=== PATIENT | female | born 1965 | race Caucasian/White ===

== ENCOUNTER 2016-07-29 16:59 | Observation (INO) ==
--- NOTE | 2016-07-29 19:11 | Emergency Department Note ---
Disposition Clinical Impression: Hyperglycemia, Renal failure Disposition: Admitted As Inpatient Condition: Good Time of Disposition: 20:17 General Adult HPI - General Chief complaint: ED Recheck/Abnormal Lab/Rx Stated complaint: kidney function per DR Anna Time Seen by Provider: 07/29/16 18:33 Source: patient Mode of arrival: ambulatory Limitations: no limitations Nursing Notes Reviewed: Yes Vital Signs Reviewed: Yes - History of Present Illness HPI Narrative: 51-year-old female presents from Dr. Anna's office for out of control diabetes with a blood sugar of 450 and an A1c of 10 along with worsening GFR from 46 to 35. 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 She states that she has mild malaise, and increased thirst and urinary frequency. She denies any headache, fever, neck pain or chest pain or shortness of breath, abdominal pain, nausea, vomiting, diarrhea, rashes or edema. She denies noncompliance with her metformin. She states that she does not check her blood sugar regularly. Pain Scale: 7 - Related Data Home Medications Medication Instructions Recorded Confirmed GlipiZIDE [Glucotrol] 5 mg PO BID 02/25/15 07/29/16 Linagliptin [Tradjenta] 5 mg PO BID 02/25/15 07/29/16 Gabapentin [Neurontin] 300 mg PO HS 07/29/16 07/29/16 Omeprazole [PriLOSEC] 40 mg PO BID 07/29/16 07/29/16 OxyCODONE Immed Rel [Roxicodone 5 5 mg PO TID PRN 07/29/16 07/29/16 MG] Allergies Allergy/AdvReac Type Severity Reaction Status Date / Time Hydromorphone [From Dilaudid] Allergy Hives Verified 01/01/16 10:47 Penicillins Allergy Seizure Verified 01/01/16 10:47 sulfamethoxazole Allergy Hives Verified 02/25/15 14:50 [From Bactrim] trimethoprim [From Bactrim] Allergy Hives Verified 02/25/15 14:50 All systems ED: reviewed and negative except as stated. Past Medical History - Past Medical History Attestation: Yes The following information was validated with the patient. Source: patient Medical history: Reports: cancer, diabetes, GERD, renal disease, seizures Surgical history: Reports: cholecystectomy, hysterectomy, other Psychiatric history: Reports: no psych history - Social History Smoking Status: Never smoker Smokeless Tobacco Status: No Alcohol use: Reports: unknown Drug use: Reports: none Physical Exam - Head Head exam: atraumatic, normocephalic, normal inspection - Eye Eye exam: Present: normal appearance, PERRL, EOMI - ENT ENT exam: normal exam, normal oropharynx, mucous membranes moist - Neck Neck exam: Present: normal inspection, full ROM, trachea midline - Chest Chest inspection: Present: normal inspection, symmetric chest wall rise - Respiratory Respiratory exam: Clear to auscultation bilaterally without wheezes rales or rhonchi Cardiovascular Cardiovascular exam: Present: regular rate, normal rhythm, normal heart sounds - Abdominal Exam Abdominal exam: Present: soft, Non-Tender. Absent: tenderness, distention, guarding, rebound, rigidity - Extremities Exam Extremities exam: Present: normal inspection, full ROM - Expanded Lower Extremity Exam Hip/Pelvis exam: Present: normal inspection, full ROM - Back Exam Back exam: Present: normal inspection, full ROM. Absent: tenderness, CVA tenderness (R), CVA tenderness (L) - Neurological Exam Neurological exam: Present: alert, oriented X3, CN II-XII intact - Psychiatric Psychiatric exam: Present: normal affect, normal mood - Skin Skin exam: Present: warm, dry, intact, normal color - General Limitations: no limitations General appearance: alert, in no apparent distress Course - Reevaluation(s) Reevaluation #1: Labs show ketosis without acidosis. Glucose 311. GFR 38. Given solitary kidney Dr. Shoshana Anna would like patient admitted. Accepted by Dr. Terrazas. Time: 20:15 Vital Signs Temperature 98.4 F 07/29/16 17:03 Pulse Rate 81 07/29/16 17:03 Respiratory Rate 18 07/29/16 17:03 Blood Pressure 180/92 07/29/16 17:03 O2 Sat by Pulse Oximetry 99 07/29/16 17:03 Temperature 98.4 F 07/29/16 17:03 Pulse Rate 81 07/29/16 19:19 Respiratory Rate 16 07/29/16 19:19 Blood Pressure 149/107 07/29/16 19:19 O2 Sat by Pulse Oximetry 95 07/29/16 19:19 Oxygen Delivery Oxygen Delivery Room Air Medical Decision Making - Lab Data Result diagrams: 07/29/16 19:06 07/29/16 19:06 Lab Results 07/29/16 07/29/16 07/29/16 Range/Units 19:06 19:06 19:06 WBC 7.0 (4.3-11.1) K/mcL RBC 5.74 H (3.82-4.97) M/mcL Hgb 15.5 H (11.5-15.4) g/dL Hct 45.5 H (35.3-44.9) % MCV 79.3 L (83.0-100.0) fL MCH 27.0 L (28.0-33.3) pg MCHC 34.1 (31.6-35.5) g/dL RDW 12.5 (11.5-14.5) % Plt Count 207 (140-400) K/mcL MPV 9.4 (9.4-12.4) fL Immature Gran % 0.4 (0-4) % Seg Neutrophils % 57.1 % Lymphocytes % 31.7 % Monocytes % 7.1 % Eosinophils % 3.3 % Basophils % 0.4 % Neutrophils # 4.0 (1.6-8.9) K/mcL Lymphocytes # 2.2 (0.6-4.6) K/mcL Monocytes # 0.5 (0.0-1.3) K/mcL Eosinophils # 0.2 (0.0-0.6) K/mcL Basophils # 0.0 (0.0-0.2) K/mcL VBG pH 7.44 H (7.32-7.42) pH Units VBG pCO2 36 L (41-51) mmHg VBG pO2 118 H (25-40) mmHg VBG HCO3 24.5 (21-27) mEq/L Sodium 136 (136-145) mEq/L Potassium 3.8 D (3.5-4.5) mEq/L Chloride 102 (98-109) mEq/L Carbon Dioxide 25 (19-29) mEq/L BUN 14 (7-20) mg/dL Creatinine 1.45 H (0.57-1.11) mg/dL Est GFR ( Amer) 46 L (> 60) Est GFR (Non-Af Amer) 38 L (> 60) BUN/Creatinine Ratio 10 (6-26) Glucose 311 H (70-99) mg/dL Calculated Osmolality 294 (280-300) Calcium 9.4 (8.6-10.8) mg/dL Phosphorus 3.2 (2.3-4.7) mg/dL Magnesium 1.8 (1.6-2.6) mg/dL Total Bilirubin 0.9 (0.2-1.2) mg/dL AST 44 H (5-34) Units/L ALT 94 H (0-55) Units/L Alkaline Phosphatase 138 H (38-126) Units/L Serum Total Protein 7.7 (6.0-8.3) g/dL Albumin 3.5 (3.5-5.0) g/dL Globulin 4.2 H (2.4-3.5) g/dL Albumin/Globulin Ratio 0.8 L (1.1-2.2) Beta-Hydroxybutyric Acd 0.45 H (0.02-0.27) mmol/L Urine Color (Yellow) Urine Clarity (Clear) Urine pH (5.0-8.0) pH Units Ur Specific [place] (1.010-1.025) Urine Protein (Neg-Trace) mg/dL Urine Glucose (UA) (Normal) mg/dL Urine Ketones (Negative) mg/dL Urine Blood (Negative) Urine Nitrite (Negative) Urine Bilirubin (Negative) Urine Urobilinogen (Normal) mg/dL Ur Leukocyte Esterase (Negative) Urine Microscopic RBC (0-3) per hpf Urine Microscopic WBC (0-3) per hpf Ur Squamous Epith Cells (None-Few) per lpf Urine Bacteria (None-Few) per hpf Hyaline Casts (None-Few) per lpf Ur Culture Indicated? (NO) 07/29/16 Range/Units 21:20 WBC (4.3-11.1) K/mcL RBC (3.82-4.97) M/mcL Hgb (11.5-15.4) g/dL Hct (35.3-44.9) % MCV (83.0-100.0) fL MCH (28.0-33.3) pg MCHC (31.6-35.5) g/dL RDW (11.5-14.5) % Plt Count (140-400) K/mcL MPV (9.4-12.4) fL Immature Gran % (0-4) % Seg Neutrophils % % Lymphocytes % % Monocytes % % Eosinophils % % Basophils % % Neutrophils # (1.6-8.9) K/mcL Lymphocytes # (0.6-4.6) K/mcL Monocytes # (0.0-1.3) K/mcL Eosinophils # (0.0-0.6) K/mcL Basophils # (0.0-0.2) K/mcL VBG pH (7.32-7.42) pH Units VBG pCO2 (41-51) mmHg VBG pO2 (25-40) mmHg VBG HCO3 (21-27) mEq/L Sodium (136-145) mEq/L Potassium (3.5-4.5) mEq/L Chloride (98-109) mEq/L Carbon Dioxide (19-29) mEq/L BUN (7-20) mg/dL Creatinine (0.57-1.11) mg/dL Est GFR ( Amer) (> 60) Est GFR (Non-Af Amer) (> 60) BUN/Creatinine Ratio (6-26) Glucose (70-99) mg/dL Calculated Osmolality (280-300) Calcium (8.6-10.8) mg/dL Phosphorus (2.3-4.7) mg/dL Magnesium (1.6-2.6) mg/dL Total Bilirubin (0.2-1.2) mg/dL AST (5-34) Units/L ALT (0-55) Units/L Alkaline Phosphatase (38-126) Units/L Serum Total Protein (6.0-8.3) g/dL Albumin (3.5-5.0) g/dL Globulin (2.4-3.5) g/dL Albumin/Globulin Ratio (1.1-2.2) Beta-Hydroxybutyric Acd (0.02-0.27) mmol/L Urine Color Yellow (Yellow) Urine Clarity Clear (Clear) Urine pH 6.0 (5.0-8.0) pH Units Ur Specific [place] > 1.030 H (1.010-1.025) Urine Protein Trace (Neg-Trace) mg/dL Urine Glucose (UA) >=1000 H (Normal) mg/dL Urine Ketones Negative (Negative) mg/dL Urine Blood Negative (Negative) Urine Nitrite Negative (Negative) Urine Bilirubin Small H (Negative) Urine Urobilinogen Normal (Normal) mg/dL Ur Leukocyte Esterase Negative (Negative) Urine Microscopic RBC 0-3 (0-3) per hpf Urine Microscopic WBC 3-5 H (0-3) per hpf Ur Squamous Epith Cells Many H (None-Few) per lpf Urine Bacteria Few (None-Few) per hpf Hyaline Casts None Seen (None-Few) per lpf Ur Culture Indicated? NO (NO) Attestation Statement - Attestation Attestation: I examined this patient and my medical decision-making was reviewed with the PLAN NURSE/PA/Advanced Practice Nurse/Resident Physician. I agree with the documented findings, disposition and treatment plan as described except to the extent set forth below. Patient to the emergency department complaining of abnormal labs. Patient has been drinking and urinating a lot. Blood sugar was up. Had outpatient labs that showed a drop in her GFR. States her media developer was concerned because she only has one kidney. Sent to ED for evaluation. Denies change in diet. Denies fever. Denies cough. Denies vomiting or diarrhea. States she has been eating and drinking normally. Exam shows her in no acute distress with stable vitals. Plan. Repeat labs. IV hydration. Renal ultrasound performed. Labs not improved. IV hydration was given. She is admitted to medicine.
[2016-07-29 19:18] LABS: VBG HCO3 24.5 mEq/L (21-27); VBG PH 7.44 pH Units (7.32-7.42)
[2016-07-29 19:22] LABS: Basophils % 0.4 %; Eosinophils # 0.2 K/mcL (0.0-0.6); Eosinophils % 3.3 %; Hematocrit 45.5 % (35.3-44.9); Hemoglobin 15.5 g/dL (11.5-15.4); Immature Granulocytes % 0.4 % (0-4); Lymphocytes # 2.2 K/mcL (0.6-4.6); Lymphocytes % 31.7 %; Mean Corpuscular HGB Conc 34.1 g/dL (31.6-35.5); Mean Corpuscular Volume 79.3 fL (83.0-100.0); Mean Platelet Volume 9.4 fL (9.4-12.4); Monocytes # 0.5 K/mcL (0.0-1.3); Monocytes % 7.1 %; Platelet Count 207 K/mcL (140-400); Red Blood Count 5.74 M/mcL (3.82-4.97); Red Cell Distribution Width 12.5 % (11.5-14.5); Segmented Neutrophils % 57.1 %
[2016-07-29 19:29] LABS: Beta-Hydroxybutyric Acid 0.45 mmol/L (0.02-0.27)
[2016-07-29 19:39] LABS: Albumin 3.5 g/dL (3.5-5.0); Albumin/Globulin Ratio 0.8 (1.1-2.2); Bilirubin,Total 0.9 mg/dL (0.2-1.2); Calcium 9.4 mg/dL (8.6-10.8); Globulin 4.2 g/dL (2.4-3.5); Magnesium 1.8 mg/dL (1.6-2.6); Phosphorous 3.2 mg/dL (2.3-4.7); Potassium 3.8 mEq/L (3.5-4.5); Total Protein 7.7 g/dL (6.0-8.3)
[2016-07-29] MEDS ORDERED: *HR* OxyCODONE/APAP 5/325 TABLET PO ONE (20:28)
[2016-07-29] MEDS: 0.9 % Sodium Chloride 1,000 ML IVC SCH ×2 (20:29→23:47)
[2016-07-29] MEDS ORDERED: Acetaminophen 325 MG TABLET PO PRN (20:59)
[2016-07-29] MEDS ORDERED: Naloxone 0.4 MG/ML INJ IVP PRN (20:59)
[2016-07-29] MEDS ORDERED: *HR* Dextrose 50 % in Water (Syg) 50 ML SYRINGE IVP PRN (21:02)
[2016-07-29] MEDS ORDERED: D5% in Water 1,000 ML IVC PRN (21:02)
[2016-07-29] MEDS ORDERED: Dextrose Gel 15 GM PO PRN ×2 (21:02)
[2016-07-29 21:28] LABS: Bilirubin,Urine Small (Negative); Blood,Urine Negative (Negative); Clarity,Urine Clear (Clear); Color,Urine Yellow (Yellow); Glucose,Urine (UA) >=1000 mg/dL (Normal); Ketones,Urine Negative (Negative); Leukocyte Esterase,Urine Negative (Negative); Nitrite,Urine Negative (Negative); Protein,Urine Trace mg/dL (Neg-Trace); Specific Gravity,Urine > 1.030 (1.010-1.025); Urobilinogen,Urine Normal (Normal)
[2016-07-29 21:30] LABS: Bacteria,Urine Few per hpf (None-Few); Hyaline Casts,Urine None Seen per lpf (None-Few); RBC,Urine 0-3 per hpf (0-3); Squamous Epithelial Cell,Urine Many per lpf (None-Few)
--- NOTE | 2016-07-29 21:37 | Internal Med History&Physical ---
<Beau Rodriguez - Last Filed: 07/29/16 23:06> Date of Encounter: 07/29/16 Time of Encounter: 21:32 Assessment and Plan (1) Hyperglycemia Current visit: Yes Status: Acute Patient's blood sugar was 311 on presentation, was 453 on BMP 2 days ago. She was symptomatic with this however she does not have ketones in her urine. She does not have an anion gap so she does not appear to be in DKA or HHS. We will treat with fluid hydration and initiate basal bolus insulin. Patient states she is concerned about starting insulin but she may require insulin therapy at discharge. (2) CKD (chronic kidney disease) stage 3, GFR 30-59 ml/min Current visit: Yes Status: Acute GFR is 38 on presentation, slightly decreased from her baseline of upper 40s to low 50s. Likely related to dehydration. Will fluid hydrate and monitor creatinine. Retroperitoneal ultrasound reveals no evidence of hydronephrosis or obstruction. (3) Solitary kidney Current visit: Yes Status: Acute Patient has a solitary right kidney, retroperitoneal ultrasound shows of 4.2 x 2.3 x 3.2 cm focal thickening of the right renal upper pole. I spoke with the radiologist regarding this and may recommend a CT with contrast for further characterization of this area. Given the patient's chronic kidney disease and solitary kidney I am hesitant to give the patient IV contrast without having the drafter patent on board therefore we will consult nephrology and allow them to manage the patient's renal function in preparation for possible CT scan. (4) Diabetes type 2, uncontrolled Current visit: Yes Status: Acute Patient is noncompliant with checking her blood sugars. Patient recently started safflower oil and attempt to better control her blood sugars however this could have adversely affected her blood sugars. We will institute insulin as discussed above. Qualifiers: Diabetes mellitus complication status: with kidney complications Diabetes mellitus complication detail: with chronic kidney disease Diabetes mellitus milieu therapist insulin use: without jail use Chronic kidney disease stage: stage 3 (moderate) Qualified Code(s): E11.22 - Type 2 diabetes mellitus with diabetic chronic kidney disease; E11.65 - Type 2 diabetes mellitus with hyperglycemia; N18.3 - Chronic kidney disease, stage 3 (moderate) (5) GERD (gastroesophageal reflux disease) Current visit: Yes Status: Acute Stable. Continue PPI. Qualifiers: Esophagitis presence: esophagitis presence not specified Qualified Code(s) : K21.9 - Gastro-esophageal reflux disease without esophagitis (6) DVT prophylaxis Current visit: Yes Status: Acute Heparin 5000u SQ BID Internal Medicine - H&P: HPI Chief complaint: Flank pain Admitted From: Home Plans for Post Hospital Care: Home History of present illness: Ms. Plunkett is a 51 year old female with history of solitary kidney, chronic kidney disease stage III, diabetes presents with right flank pain. Patient states that she was seen by her drafter patent, Dr. Anna, today and the patient had symptoms including right flank pain, headache, nausea, general feeling of unwell. Patient states that Dr. Anna stated that her kidney function was worsening her sugar was high so she requested that she come to the hospital to be admitted for treatment. Patient states the symptoms going on for about 3 days. She also reports polyuria and polydipsia and feels that her urine has been darker than normal. Patient states that she began using safflower oil approximately 3 days ago to help regulate her sugars and lose weight on suggestion of her sister. Patient states she has been trying to watch her diet recently but does not monitor her sugars. She denies fever, chills, chest pain , shortness of breath, dysuria, hematuria. Past Med Surg Social Fam HX - Past Medical History Medical history: cancer, diabetes, GERD, renal disease, seizures Psychiatric history: no psych history - Past Surgical History Surgical History: cholecystectomy, hysterectomy, other - Social History Smoking Status: Never smoker Smokeless Tobacco Status: No Alcohol use: unknown Drug use: none - Family History Mother Living Status: Hx Family Respiratory Disorders: Yes Hx Family Cancer: Yes (MELANOMA) Internal Medicine - H&P: Meds GlipiZIDE [Glucotrol] 5 mg PO BID 02/25/15 [History] Linagliptin [Tradjenta] 5 mg PO BID 02/25/15 [History] Gabapentin [Neurontin] 300 mg PO HS 07/29/16 [History] Omeprazole [PriLOSEC] 40 mg PO BID 07/29/16 [History] OxyCODONE Immed Rel [Roxicodone 5 MG] 5 mg PO TID PRN 07/29/16 [History] Allergies Hydromorphone [From Dilaudid] Allergy (Verified 01/01/16 10:47) Hives Penicillins Allergy (Verified 01/01/16 10:47) Seizure sulfamethoxazole [From Bactrim] Allergy (Verified 02/25/15 14:50) Hives trimethoprim [From Bactrim] Allergy (Verified 02/25/15 14:50) Hives All Systems PM: A 10-system review of systems was performed and is negative for pertinent findings except as documented above in the HPI. - Constitutional Constitutional: lethargy, malaise, no chills, no fever(s) - EENT Eyes: blurry vision Nose, mouth and throat: no sinus pain, no sinus pressure, no sore throat - Cardiovascular Cardiovascular ROS IM: no chest pain, no diaphoresis, no dyspnea - Respiratory Respiratory: no cough, no dyspnea, no chest congestion, no excessive phlegm production, no change in phlegm color - Gastrointestinal Gastrointestinal: nausea, no diarrhea, no hematemesis, no hematochezia, no vomiting - Genitourinary Genitourinary: flank pain, no dysuria, no hematuria, no urinary frequency, no urinary hesitancy, no urinary incontinence, no urinary urgency - Musculoskeletal Musculoskeletal ROS IM: numbness, tingling - Integumentary Integumentary IM: no erythema, no skin ulcer - Neurological Neurological ROS: headache(s), tingling, no confusion, no focal weakness, no frequent falls - Endocrine Endocrine IM: polydipsia, polyuria - Constitutional Vitals: Temp Pulse Resp BP Pulse Ox 98.4 F 81 16 149/107 95 07/29/16 17:03 07/29/16 19:19 07/29/16 19:19 07/29/16 19:19 07/29/16 19:19 General appearance: Present: A&O X 3, no acute distress - Head Head exam: Present: atraumatic, normal inspection, normocephalic - Eye Eye exam: Present: EOMI, PERRL - ENT ENT exam: Present: mucous membranes dry - Respiratory Respiratory exam: Present: CTAB. Absent: rales, rhonchi, wheezes - Cardiovascular Cardiovascular exam: Present: RRR. Absent: gallop, rubs, systolic murmur - GI/Abdominal GI/Abdominal exam: Present: normal bowel sounds, soft. Absent: distended, tenderness Additional comments: No CVA tenderness - Extremities Exam Extremities exam: Present: pedal edema (trace). Absent: tenderness, warm - Neurological Exam Neurological exam: Present: alert, CN II-XII intact, oriented X3, no focal deficits Internal Med - H&P Results - Labs CBC & Chem 7: 07/29/16 19:06 07/29/16 19:06 Labs: Short CBC 07/29/16 Range/Units 19:06 WBC 7.0 (4.3-11.1) K/mcL Hgb 15.5 H (11.5-15.4) g/dL Hct 45.5 H (35.3-44.9) % Plt Count 207 (140-400) K/mcL Neutrophils # 4.0 (1.6-8.9) K/mcL BMP 07/29/16 19:06 Sodium 136 Potassium 3.8 D Chloride 102 Carbon Dioxide 25 BUN 14 Creatinine 1.45 H Glucose 311 H Calcium 9.4 Liver Function 07/29/16 Range/Units 19:06 Total Bilirubin 0.9 (0.2-1.2) mg/dL AST 44 H (5-34) Units/L ALT 94 H (0-55) Units/L Alkaline Phosphatase 138 H (38-126) Units/L Albumin 3.5 (3.5-5.0) g/dL Urine 07/29/16 Range/Units 21:20 Urine Color Yellow (Yellow) Urine Clarity Clear (Clear) Urine pH 6.0 (5.0-8.0) pH Units Ur Specific [place] > 1.030 H (1.010-1.025) Urine Protein Trace (Neg-Trace) mg/dL Urine Glucose (UA) >=1000 H (Normal) mg/dL - ABG Interpretation ABG results: 07/29/16 19:06 VBG pH 7.44 H VBG pCO2 36 L VBG pO2 118 H VBG HCO3 24.5 - Impressions ITS Impressions Retroperitoneum Ultrasound 07/29/16 19:04 IMPRESSION: 1. No acute sonographic abnormality in the right kidney. There is no evidence of obstructive uropathy. 2. Focal thickening of the right renal upper pole cortex, measuring approximately 4.2 x 2.3 x 3.2 cm. Differential includes renal mass versus dromedary hump. Finding would better be assessed with CT per renal mass protocol on a nonemergent basis. D/ / 07/29/2016 20:08:07 James Fountain MD / toan Interpreting Provider: James Fountain MD <Sai Terrazas - Last Filed: 07/29/16 23:24> Date of Encounter: 07/29/16 Internal Medicine - H&P: HPI History of present illness: Ms. Plunkett is a 51 year old female All Systems PM: A 10-system review of systems was performed and is negative for pertinent findings except as documented above in the HPI. - Constitutional Vitals: Temp Pulse Resp BP Pulse Ox 98.4 F 81 0 0/0 95 07/29/16 17:03 07/29/16 19:19 07/29/16 22:12 07/29/16 22:12 07/29/16 19:19 Internal Med - H&P Results - Labs CBC & Chem 7: 07/29/16 19:06 07/29/16 19:06 - Attending Attestation I personally interviewed and examined this patient and my medical decision- making was reviewed with the Resident Physician. I agree with the documented findings, disposition and treatment plan as described.
[2016-07-29] MEDS ORDERED: *HR* OxyCODONE Immed Rel 5 MG TABLET PO PRN (22:11)
[2016-07-29] MEDS: *HR* Morphine 2 MG/ML SYRINGE IVP PRN (23:48)
[2016-07-29] MEDS: Ondansetron 4 MG/2 ML VIAL IVP PRN (23:48)
[2016-07-30] MEDS: *HR* Morphine 2 MG/ML SYRINGE IVP PRN ×3 (04:00→21:47)
[2016-07-30] MEDS: 0.9 % Sodium Chloride 1,000 ML IVC SCH ×9 (04:55→08:40)
[2016-07-30 05:24] LABS: Basophils % 0.7 %; Eosinophils # 0.2 K/mcL (0.0-0.6); Eosinophils % 4.2 %; Hematocrit 42.9 % (35.3-44.9); Immature Granulocytes % 0.5 % (0-4); Lymphocytes # 2.4 K/mcL (0.6-4.6); Lymphocytes % 41.3 %; Mean Corpuscular HGB Conc 32.6 g/dL (31.6-35.5); Mean Corpuscular Hemoglobin 26.2 pg (28.0-33.3); Mean Corpuscular Volume 80.3 fL (83.0-100.0); Mean Platelet Volume 10.4 fL (9.4-12.4); Monocytes # 0.4 K/mcL (0.0-1.3); Monocytes % 6.9 %; Neutrophils # 2.6 K/mcL (1.6-8.9); Platelet Count 181 K/mcL (140-400); Red Blood Count 5.34 M/mcL (3.82-4.97); Red Cell Distribution Width 12.6 % (11.5-14.5); Segmented Neutrophils % 46.4 %
[2016-07-30 05:39] LABS: Calcium 8.1 mg/dL (8.6-10.8); Potassium 4.3 mEq/L (3.5-4.5)
[2016-07-30] MEDS: *HR* Heparin 5,000 UNIT/ML VIAL SQ SCH ×2 (06:12→17:43)
[2016-07-30] MEDS: *HR* OxyCODONE Immed Rel 5 MG TABLET PO PRN ×2 (06:13→17:41)
[2016-07-30] MEDS: Insulin LISPRO 300 UNITS/3 ML VIAL SQ SCH ×6 (08:38→17:51)
--- NOTE | 2016-07-30 08:52 | Electrocardiograph Report ---
[address] [address] Test Date: 2016-07-29 Pat Name: Trudy Plunkett Department: 102 Room: 3B Gender: F Chief Warden: [facility] : 1965 Requested By: Anabella See Order Number: [id number] Reading MD: Irais Molina Measurements Intervals Harper Rate: 82 P: 20 IL: 175 QRS: 18 QRSD: 84 T: 29 QT: 365 QTc: 404 Interpretive Statements SINUS RHYTHM Electronically Signed On 07-30-2016 8:51:15 EDT by Irais Molina
--- NOTE | 2016-07-30 09:21 | Nephrology Consult Note ---
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 Focal thickening of the right renal upper pole cortex measuring 4.2 x 2.3 x 3.2 cm. No hydronephrosis or echogenic stone. Radiologist report indicates finding would be better addressed with CT per renal mass protocol. Retroperitoneal ultrasound 02/28/16 revealed right kidney 13.2 x 5.4 x 4.9 cm, normal cortical echogeneity, no hydronephrosis or intrarenal stone. BUN 13, Cr 1.33. Continue to monitor labs. MRI abdomen w/wo contrast. (Gadolinium contrast ok as long as gfr >30) (2) CKD (chronic kidney disease) stage 3, GFR 30-59 ml/min Current Visit: Yes Status: Acute Known history of CKD. Stage 3. GFR 38 upon admission, slightly below baseline. May be related to poor oral intake. Retroperitoneal ultaround revealed no evidence of hydronephrosis or obstruction. BUN 13, Cr 1.33 this morning, GFR 42. Now at baseline Continue to monitor labs. (3) Diabetes type 2, uncontrolled Current Visit: Yes Status: Acute Patient with known history of type II diabetes, not on insulin who presented with complaints of headache, malaise, nausea, polyuria, polydipsia, and dark urine. Glucose 311 upon arrival. No ketones noted. A1C 10.9, increased from 7.8 three months prior. Glucose 375 this morning. Continue per Hospitalist plan. Qualifiers: Diabetes mellitus complication status: with kidney complications Diabetes mellitus complication detail: with chronic kidney disease Diabetes mellitus knotting machine operator insulin use: without knotting machine operator use Chronic kidney disease stage: stage 3 (moderate) Qualified Code(s): E11.22 - Type 2 diabetes mellitus with diabetic chronic kidney disease; E11.65 - Type 2 diabetes mellitus with hyperglycemia; N18.3 - Chronic kidney disease, stage 3 (moderate) History of Present Illness - Reason for Consult Consult date: 07/29/16 Requesting physician: Beau Rodriguez - Chief Complaint Solitary kidney, CKD stage 3, hyperglycemia - History of Present Illness Ms. Plunktet is a 51 year old female with history of solitary Right kidney, s/p Left nephrectomy due to atrophy in 1972 (age 8), CKD stage 3, type II diabetes not on insulin, gerd, and history of seizures who was admitted at the recommendation of Dr. Espana after being seen for a routine followup for presyncope and fluid hydration suspecting osmotic diuresis due to uncontrolled diabetes. Patient reported general malaise, headaches, nausea, and right flank pain for 3 days. Also reported polyuria, polydypsia, and darker urine. Patient does not check her blood sugars regularly. Patient denies fevers, chills, sweats, vomiting, chest pain, or shortness of breath. Patient's blood sugar was 311 upon admission. Retroperitoneal ultrasound was negative for hydronephrosis or obstruction, but showed focal thickening of the right renal upper pole. Nephrology was consulted for evaluation of patient prior to radiologist recommended CT with contrast for further evaluation of renal ultrasound findings. Patient reports doing well overnight. Reports right flank pain has improved. Reports continued headache described as dull and squeezing in nature. Denies fevers, chills, sweats, nausea, vomiting, chest pain or pressure, shortness of breath, changes in bowels or bladder, weakness, or loss of sensation. Past Med Surg Social Fam HX - Past Medical History Medical history: cancer, diabetes, GERD, renal disease, seizures Psychiatric history: no psych history - Past Surgical History Surgical History: cholecystectomy, hysterectomy, other - Social History Smoking Status: Never smoker Smokeless Tobacco Status: No Alcohol use: unknown Drug use: none - Family History Father Living Status: Still Living Hx Family Endocrine Disorder: Yes (DM) Mother Living Status: Age at : 58 Cause of : COPD Hx Family Respiratory Disorders: Yes (COPD, emphysema) Hx Family Cancer: Yes (Melanoma) Hx Family Endocrine Disorder: Yes (DM) Medications and Allergies GlipiZIDE [Glucotrol] 5 mg PO BID 02/25/15 [History] Linagliptin [Tradjenta] 5 mg PO BID 02/25/15 [History] Gabapentin [Neurontin] 300 mg PO HS 07/29/16 [History] Omeprazole [PriLOSEC] 40 mg PO BID 07/29/16 [History] OxyCODONE Immed Rel [Roxicodone 5 MG] 5 mg PO TID PRN 07/29/16 [History] Allergies Hydromorphone [From Dilaudid] Allergy (Verified 01/01/16 10:47) Hives Penicillins Allergy (Verified 01/01/16 10:47) Seizure sulfamethoxazole [From Bactrim] Allergy (Verified 02/25/15 14:50) Hives trimethoprim [From Bactrim] Allergy (Verified 02/25/15 14:50) Hives Exam - Vital Signs Vital signs: Initial Vital Signs Temp Pulse Resp BP Pulse Ox 98.4 F 81 18 180/92 99 07/29/16 17:03 07/29/16 17:03 07/29/16 17:03 07/29/16 17:03 07/29/16 17:03 Vital Signs - Last 8 Hours Temp Pulse Resp BP Pulse Ox 07/30/16 07:55 97.6 F 70 15 120/70 92 07/30/16 04:53 98.3 F 70 16 120/75 95 Intake and Output 07/29/16 07/30/16 07/30/16 23:59 07:59 15:59 Intake Total 800 / 800 1000 / 1000 Balance 800 / 800 1000 / 1000 Intake: IV Fluids 1000 / 1000 0.9 % Sodium Chloride 1, 1000 / 1000 000 ML @ 100 mls/hr IVC . Q10H HEDY Rx#:[id number] Oral 800 / 800 Other: Meal water pitcher filled # Voids 1 Weight 108.182 kg 111.266 kg Blood Glucose* 279 297 Patient Weight 07/30/16 23:59 Weight 111.266 kg - General Appearance General appearance: well-developed, well-nourished, appears started age EENT: PERRL, mucous membranes moist Neck: no JVD, no carotid bruit, supple Respiratory: clear Cardiology: no murmurs, no edema, regular rate, regular rhythm, normal S1, normal S2 Gastrointestinal: normoactive bowel sounds, no tenderness, no guarding Integumentary: no rash, warm and dry Neurologic: no focal deficit, alert and oriented x3, strength 5/5, CN 3-12 intact Musculoskeletal: no deformities, no erythema, no cyanosis, no clubbing Psychiatric: mood/affect appropriate, cooperative Results - Lab Results 07/30/16 04:25 07/30/16 04:25 Most recent lab results Calcium 8.1 mg/dL (8.6-10.8) L 07/30/16 04:25 Phosphorus 3.2 mg/dL (2.3-4.7) 07/29/16 19:06 Magnesium 1.8 mg/dL (1.6-2.6) 07/29/16 19:06 Consult Discharge Plan - Plan Referrals: Ethan Pratt MD [Primary Care Provider] - <Fariha Espana - Last Filed: 07/31/16 06:48> Date of Encounter: 07/30/16 Exam - Vital Signs Vital signs: Initial Vital Signs Temp Pulse Resp BP Pulse Ox 98.4 F 81 18 180/92 99 07/29/16 17:03 07/29/16 17:03 07/29/16 17:03 07/29/16 17:03 07/29/16 17:03 Vital Signs - Last 8 Hours Temp Pulse Resp BP Pulse Ox 07/31/16 03:30 97.6 F 73 15 105/70 97 07/30/16 23:03 97.8 F 71 15 104/70 95 Intake and Output 07/30/16 07/30/16 07/31/16 15:59 23:59 07:59 Intake Total 1480 / 1480 1939 194 Balance 1480 / 1480 1939 Intake: IV Fluids 1000 / 1000 1000 / 1000 0.9 % Sodium Chloride 1, 1000 / 1000 1000 / 1000 000 ML @ 100 mls/hr IVC . Q10H HEDY Rx#:[id number] Oral 480 / 480 940 / 940 Other: Meal Lunch Dinner Percent of Meal Consumed 25% 10% # Voids 2 1 Weight 111 kg Blood Glucose* 207 Patient Weight 07/31/16 23:59 Weight 111 kg Results - Lab Results 07/30/16 18:10 07/30/16 18:10 Most recent lab results Calcium 8.5 mg/dL (8.6-10.8) L 07/30/16 18:10 Phosphorus 3.2 mg/dL (2.3-4.7) 07/29/16 19:06 Magnesium 1.8 mg/dL (1.6-2.6) 07/29/16 19:06 - Attending Attestation I examined this patient and my medical decision-making was reviewed with the WORLD HISTORY TEACHER/PA/Advanced Practice Nurse/Resident Physician. I agree with the documented findings, disposition and treatment plan as described except to the extent set forth below. Pt seen and examine with PMH of DM and solitary kidney s/p Nx at age 8 admitted after being sent from my office with generalized malaise along with lightheadedness with increased thirst. She reports feeling poorly lately. Her labs showed elevated SCr from baseline, glucose of 450 and A1c of 10.9 suspicious for osmotic diuresis from hyperglycemia. Also noted was incidental finding od renal lesion which requires imaging, MRI would be ideal if possible.
--- NOTE | 2016-07-30 15:32 | Internal Med Progress Note ---
Date of Encounter: 07/30/16 Time of Encounter: 08:35 - Assessment and plan (1) Hyperglycemia Current Visit: Yes Status: Acute Assessment and plan: Pt was sent to ED from nephrology office with hyperglycemia and worsening renal function. A1c was 7.8 May 20 of this year. Is 10.9 yesterday. Accu-Cheks have all been over 300 today. Patient reports that she only takes Tradjenta and Glyburide at home. She admits that she is noncompliant with ADA diet and counting carbohydrates. She reports that her blood sugars are anywhere from 127 to 140s at home every day. I discussed with the patient increasing her level of exercise to at least 20 minutes a day and adhering to a low carbohydrate and calorie diet. fish drier has been consulted. Continue Accu-Cheks before meals at bedtime Diabetic diet Sliding-scale insulin fish drier has been consulted May require insulin on discharge for home. (2) CKD (chronic kidney disease) stage 3, GFR 30-59 ml/min Current Visit: Yes Status: Chronic Assessment and plan: Creatinine is 1.33, GFR is 51 today. This is improved from yesterday. GFR was 38 yesterday. Patient was mildly dehydrated. She was getting fluids and we will continue to monitor her labs. Patient had a retroperitoneal ultrasound that showed no evidence of hydronephrosis or obstruction. There was focal thickening of the right renal pole cortex, suggestive of renal mass versus dromedary hump. I did speak with nephrology, Dr. Anna, an MRI was ordered. It was ordered with her direction and input. MRI called me to question me about the order. As of this time, 1544, the MRI has not been done yet. Monitor labs daily Avoid nephrotoxins Gentle hydration Nephrology is on board and following patient. Appreciate their assistance and input. (3) Morbid obesity with BMI of 40.0-44.9, adult Current Visit: No Status: Chronic Assessment and plan: Chronic. I did discuss lifestyle, physical, diet changes with patient. She did verbalize agreement. tin roller hot mill has been consulted. Diabetic and renal diet. (4) Solitary kidney Current Visit: Yes Status: Chronic Assessment and plan: Patient had a left nephrectomy in 1971 at age 6 due to atrophy of right kidney. Her solitary kidney shows a thickening of the right renal upper pole. Do to her chronic renal disease, CT was withheld. I spoke with Dr. Anna today who recommended an MRI. It is ordered, however it has not been done yet. We will continue to monitor patient's renal function Nephrology is on board MRI pending (5) Diabetes type 2, uncontrolled Current Visit: Yes Status: Chronic Assessment and plan: A1c has elevated 3% since May 20 of this year. Accu-Cheks have been over 200 during her stay here. She says that she is not compliant with a diabetic diet. She says she only takes charge on Tradjenta and glyburide at home. Continue sliding scale insulin and Accu-Cheks before meals at bedtime Continue diabetic and renal diet. May need to consider insulin for home. tin roller hot mill has been consulted for assistance. I did speak with her regarding increasing exercise and diet control for weight loss and better glycemic control. Qualifiers: Diabetes mellitus complication status: with kidney complications Diabetes mellitus complication detail: with chronic kidney disease Diabetes mellitus strong nitric operator insulin use: without strong nitric operator use Chronic kidney disease stage: stage 3 (moderate) Qualified Code(s): E11.22 - Type 2 diabetes mellitus with diabetic chronic kidney disease; E11.65 - Type 2 diabetes mellitus with hyperglycemia; N18.3 - Chronic kidney disease, stage 3 (moderate) (6) DVT prophylaxis Current Visit: Yes Status: Acute Assessment and plan: Subcutaneous heparin. (7) GERD (gastroesophageal reflux disease) Current Visit: Yes Status: Chronic Assessment and plan: Chronic appearing continue home medications. Qualifiers: Esophagitis presence: esophagitis presence not specified Qualified Code(s) : K21.9 - Gastro-esophageal reflux disease without esophagitis - Time Spent With Patient less than 15 minutes - Constitutional Vitals: Temp Pulse Resp BP Pulse Ox 98.0 F 70 15 122/78 94 07/30/16 11:00 07/30/16 11:00 07/30/16 11:00 07/30/16 11:00 07/30/16 11:00 General appearance: Present: A&O X 3, pleasant, no acute distress, answers questions appropriately - Head Head exam: Present: normal inspection - Eye Eye exam: Present: normal appearance, conjuntiva pink - ENT ENT exam: Present: mucous membranes moist, normal exam, normal oropharynx - Neck Neck exam general surgery: Present: normal inspection. Absent: lymphadenopathy , tenderness - Respiratory Respiratory exam: Present: CTAB. Absent: rales, respiratory distress, rhonchi, stridor, wheezes - Cardiovascular Cardiovascular exam: Present: RRR, +S1, +S2. Absent: diastolic murmur, systolic murmur - GI/Abdominal GI/Abdominal exam: Present: normal bowel sounds, soft. Absent: firm, hepatomegaly, tenderness - Extremities Exam Extremities exam: Present: pedal edema, warm, radial pulses palpable and symetrical. Absent: normal inspection, tenderness - Neurological Exam Neurological exam: Present: alert, oriented X3, strengths equal and symetr throughout. Absent: facial droop, speech deficit Internal Medicine: Result - Labs CBC & Chem 7: 07/30/16 04:25 07/30/16 04:25 Labs: Short CBC 07/30/16 Range/Units 04:25 WBC 5.7 (4.3-11.1) K/mcL Hgb 14.0 D (11.5-15.4) g/dL Hct 42.9 (35.3-44.9) % Plt Count 181 (140-400) K/mcL Neutrophils # 2.6 (1.6-8.9) K/mcL BMP 07/30/16 04:25 Sodium 137 Potassium 4.3 Chloride 106 Carbon Dioxide 22 BUN 13 Creatinine 1.33 H Glucose 375 H Calcium 8.1 L Consult Discharge Plan - Plan Referrals: Ethan Pratt MD [Primary Care Provider] -
[2016-07-30] MEDS ORDERED: 0.9 % Sodium Chloride 1,000 ML IVC SCH (15:45)
[2016-07-30 18:20] LABS: Basophils % 0.6 %; Eosinophils # 0.2 K/mcL (0.0-0.6); Eosinophils % 4.6 %; Hematocrit 41.2 % (35.3-44.9); Hemoglobin 13.7 g/dL (11.5-15.4); Immature Granulocytes % 0.4 % (0-4); Lymphocytes # 1.3 K/mcL (0.6-4.6); Lymphocytes % 27.9 %; Mean Corpuscular HGB Conc 33.3 g/dL (31.6-35.5); Mean Corpuscular Volume 81.1 fL (83.0-100.0); Mean Platelet Volume 9.4 fL (9.4-12.4); Monocytes # 0.3 K/mcL (0.0-1.3); Monocytes % 5.4 %; Neutrophils # 2.9 K/mcL (1.6-8.9); Platelet Count 180 K/mcL (140-400); Red Blood Count 5.08 M/mcL (3.82-4.97); Red Cell Distribution Width 12.4 % (11.5-14.5); Segmented Neutrophils % 61.1 %
[2016-07-30 18:33] LABS: Calcium 8.5 mg/dL (8.6-10.8)
[2016-07-30] MEDS ORDERED: Gabapentin 300 MG CAPSULE PO SCH (21:00)
[2016-07-30] MEDS ORDERED: Insulin DETEMIR 100 UNIT/ML X5UNITS SQ SCH (21:00)
[2016-07-30] MEDS ORDERED: Insulin LISPRO 300 UNITS/3 ML VIAL SQ SCH (21:00)
[2016-07-31] MEDS: Ondansetron 4 MG/2 ML VIAL IVP PRN (05:22)
[2016-07-31] MEDS: *HR* Heparin 5,000 UNIT/ML VIAL SQ SCH (05:22)
--- NOTE | 2016-07-31 07:56 | Nephrology Progress Note ---
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 Focal thickening of the right renal upper pole cortex measuring 4.2 x 2.3 x 3.2 cm. No hydronephrosis or echogenic stone. Radiologist report indicates finding would be better addressed with CT per renal mass protocol. Retroperitoneal ultrasound 02/28/16 revealed right kidney 13.2 x 5.4 x 4.9 cm, normal cortical echogeneity, no hydronephrosis or intrarenal stone. MRI abdomen revealed hypertrophy of right kidney with a nodular contour secondary to chronic scarring. Benign simple cyst within upper pole of the right kidney approximately 7mm diameter. No evidence of solid mass. Ultrasound finding access representative of dromedary hump. BUN 10, Cr 1.27 this morning. Continue to monitor labs. (2) CKD (chronic kidney disease) stage 3, GFR 30-59 ml/min Current Visit: Yes Status: Chronic Known history of CKD, stage 3 in setting of solitary kidney. GFR 45, BUN 10, Cr 1.27 Currently at baseline. Potassium level 5.8 this morning though sample slightly hemolyzed. Ordered repeat Potassium level. Continue to monitor labs. (3) Diabetes type 2, uncontrolled Current Visit: Yes Status: Chronic Patient with known history of type II diabetes, not on insulin A1C 10.9, increased from 7.8 three months prior. Glucose 289 this morning, decreased from 375 yesterday morning. Continue per Hospitalist plan. Qualifiers: Diabetes mellitus complication status: with kidney complications Diabetes mellitus complication detail: with chronic kidney disease Diabetes mellitus halfway insulin use: without halfway use Chronic kidney disease stage: stage 3 (moderate) Qualified Code(s): E11.22 - Type 2 diabetes mellitus with diabetic chronic kidney disease; E11.65 - Type 2 diabetes mellitus with hyperglycemia; N18.3 - Chronic kidney disease, stage 3 (moderate) (4) Hyperglycemia Current Visit: Yes Status: Acute Patient presented with hyperglycemia, secondary to uncontrolled type II diabetes , not on insulin therapy. A1C 10.9 Glucose at 289, down from 375 yesterday morning. Continue per hospitalist plan. Subjective Principal diagnosis: Hyperglycemia Interval history: Patient reports doing well overnight. Reports resolution of headache and right flank pain. Denies fevers, chills, sweats, changes in vision or hearing, nausea , vomiting, chest pain, shortness of breath, changes in bowels or bladder, weakness, or loss of sensation. Glucose level 289 this morning. MRI abdomen to further evaluate renal abnormality on ultrasound revealed likely dromedary hump without evidence of mass. Tolerating diet without problems. Objective - Vital Signs Vital signs: Vital Signs Temp Pulse Resp BP Pulse Ox 07/31/16 07:05 98.2 F 72 14 128/83 96 07/31/16 03:30 97.6 F 73 15 105/70 97 07/30/16 23:03 97.8 F 71 15 104/70 95 07/30/16 18:52 97.6 F 68 16 124/78 94 07/30/16 15:55 97.9 F 68 17 149/69 97 07/30/16 11:00 98.0 F 70 15 122/78 94 Intake and Output 07/30/16 07/30/16 07/31/16 15:59 23:59 07:59 Intake Total 1480 / 1480 194 / 1940 Balance 1480 / 1480 194 / 194 Intake: IV Fluids 1000 / 1000 1000 / 1000 0.9 % Sodium Chloride 1, 1000 / 1000 1000 / 1000 000 ML @ 100 mls/hr IVC . Q10H HEDY Rx#:[id number] Oral 480 / 480 940 / 940 Other: Meal Lunch Dinner Percent of Meal Consumed 25% 10% # Voids 2 1 Weight 111 kg Blood Glucose* 207 220 Patient Weight 07/31/16 23:59 Weight 111 kg - General Appearance General appearance: Present: well-developed, well-nourished, appears started age EENT: Present: PERRL, mucous membranes moist, hearing intact, vision intact Neck: Present: no JVD, no thyromegaly, no carotid bruit, supple Respiratory: Present: clear Cardiology: Present: no murmurs, edema (minimal lower extremity edema), regular rate, regular rhythm, normal S1, normal S2 Gastrointestinal: Present: normoactive bowel sounds, no tenderness, no guarding Integumentary: Present: no rash, warm and dry Neurologic: Present: no focal deficit, alert and oriented x3, strength 5/5, CN 3 -12 intact Musculoskeletal: Present: no deformities, no erythema, no cyanosis, no clubbing Psychiatric: Present: mood/affect appropriate, cooperative - Lab 07/30/16 18:10 07/31/16 10:09 Most recent lab results Calcium 8.5 mg/dL (8.6-10.8) L 07/30/16 18:10 Phosphorus 3.2 mg/dL (2.3-4.7) 07/29/16 19:06 Magnesium 1.8 mg/dL (1.6-2.6) 07/29/16 19:06 Consult Discharge Plan - Plan Referrals: Ethan Pratt MD [Primary Care Provider] - 08/05/16 2:15 pm
[2016-07-31] MEDS: Insulin LISPRO 300 UNITS/3 ML VIAL SQ SCH ×4 (08:17→12:19)
[2016-07-31 10:24] LABS: Calcium 8.4 mg/dL (8.6-10.8)
[2016-07-31 10:25] LABS: Potassium 5.8 mEq/L (3.5-4.5)
[2016-07-31 11:08] VITALS: BP 141/82
--- NOTE | 2016-07-31 13:57 | Discharge Summary ---
Date of Encounter: 07/31/16 Time of Encounter: 08:10 - Discharge Diagnosis (1) Hyperglycemia Priority: Secondary Status: Acute Comments: A1c was 7.8 in May, 10.9 now. Accu-Cheks are still remaining elevated. She says that she is only taking Tradjenta and glyburide at home. She has been seen by unit educator and reports that she has a better understanding of what to even how to cook. She still maintains a blood sugar 127 to 140s at home every day. Accu-Cheks here remain well above 200. Patient will be sent home on insulin. I will be sending her home with supplies. And she will need a visit with her primary care physician within the next few days to monitor and adjust. (2) CKD (chronic kidney disease) stage 3, GFR 30-59 ml/min Priority: Secondary Status: Chronic Comments: Creatinine 1.27, GFR 45 today. Labs at baseline. Nephrology has signed off. Patient will need to follow up outpatient with Dr. Anna. (3) Morbid obesity with BMI of 40.0-44.9, adult Priority: Secondary Status: Chronic Comments: Chronic. Lifestyle modifications. Patient has been seen by unit educator. (4) Solitary kidney Priority: Secondary Status: Chronic Comments: Left nephrectomy in 1971 due to atrophy of the kidney. Solitary kidney shows thickening of the right renal upper pole. She had an MRI last night. It is non -concerning and findings were significant for a dromedary hump. Nephrology has signed off and patient will follow up outpatient. (5) Diabetes type 2, uncontrolled Priority: Secondary Status: Chronic Comments: Patient has been nonadherent with Accu-Cheks and by mouth medications, and diet control. Patient will be sent home on insulin with supplies. Qualifiers: Diabetes mellitus complication status: with kidney complications Diabetes mellitus complication detail: with chronic kidney disease Diabetes mellitus equipment operator intermodal yard insulin use: without shelter use Chronic kidney disease stage: stage 3 (moderate) Qualified Code(s): E11.22 - Type 2 diabetes mellitus with diabetic chronic kidney disease; E11.65 - Type 2 diabetes mellitus with hyperglycemia; N18.3 - Chronic kidney disease, stage 3 (moderate) (6) DVT prophylaxis Priority: Secondary Status: Acute Comments: Heparin subcutaneous. (7) GERD (gastroesophageal reflux disease) Priority: Secondary Status: Chronic Comments: Chronic. Continue home medications. Qualifiers: Esophagitis presence: esophagitis presence not specified Qualified Code(s) : K21.9 - Gastro-esophageal reflux disease without esophagitis - Discharge Medications Prescriptions: Insulin DETEMIR [Levemir] 20 unit SQ HS #1 unit Insulin LISPRO [HumaLOG] 9 units SQ TIDWM #1 vial Syringe,Needle,Insuln,Sf,0.3ML [[employer] Insulin Safety Syrng] 1 each QID # 100 disp.syrin Home Medications: Gabapentin [Neurontin] 300 mg PO HS 07/29/16 [History] Omeprazole [PriLOSEC] 40 mg PO BID 07/29/16 [History] OxyCODONE Immed Rel [Roxicodone 5 MG] 5 mg PO TID PRN 07/29/16 [History] Insulin DETEMIR [Levemir] 20 unit SQ HS #1 unit 07/31/16 [Rx] Insulin LISPRO [HumaLOG] 9 units SQ TIDWM #1 vial 07/31/16 [Rx] Syringe,Needle,Insuln,Sf,0.3ML [[employer] Insulin Safety Syrng] 1 each QID # 100 disp.syrin 07/31/16 [Rx] Allergies/Adverse Reactions: Allergies Hydromorphone [From Dilaudid] Allergy (Verified 01/01/16 10:47) Hives Penicillins Allergy (Verified 01/01/16 10:47) Seizure sulfamethoxazole [From Bactrim] Allergy (Verified 02/25/15 14:50) Hives trimethoprim [From Bactrim] Allergy (Verified 02/25/15 14:50) Hives Procedures/tests Complete & Pending: Procedures Performed prior 72 hours Category Date Time Status MR abdomen wo/w con [MR] Routine MRI 07/30/16 12:06 Completed Date of admission: 07/29/16 21:41 Primary care physician: Ethan Pratt MD Consults: 07/29/16 22:11 Consult to Customer Relations Consultant [CONS] Routine Comment: Reason for Consult: pls assist with diabetes education, insulin use and calorie count, thanks 07/29/16 23:13 Consult to Nephrology [CONS] Routine Consulting Provider: Kidney Ashley/ORIJIGNA/CURRY/JYOTI Reason for Consult: CKD/?Kidney Mass/May need CT with contrast Call Completed: Yes Discharging clinician: Yanira Ghosh Anticipated date of discharge: 07/31/16 - Patient Status Disposition: Home, Self-Care Functional capacity at discharge: independent ambulation Overall status at discharge: patient is progressing back to baseline - Discharge Instructions Follow Up With: Ethan Pratt MD [Primary Care Provider] - 08/05/16 2:15 pm Additional Instructions: Take your insulin as written. Try to increase your exercise, slowly. Follow diabetic diet Continue your home medications other than your oral diabetic medications Make sure that you purchase some glucose tablets at the pharmacy in case your blood sugar gets low Follow up with Dr. Anna as scheduled. Follow up with your primary care physician as scheduled. Return to the ER for any problems or concerns. - Diet and Activity Activity: resume usual activities as tolerated Diet: diabetic diet, low fat, low cholesterol Interval History: Patient was sent to the emergency department by Dr. Anna from her office for nausea and hypotension in near-syncopal episode in the office. Most likely due to uncontrolled blood sugars and osmotic hypotension. Patient's GFR had fallen significantly since prior visit. Patient's blood sugars also out of control A1c is 10.9 now, elevated 3% since May of this year. Accu-Cheks have been elevated and over 200 during her stay. She states that she is not completely with a diabetic diet, she does routinely take her diabetic medication at home. She says she is not compliant with checking her blood sugar. Patient was given I V hydration for what was most likely dehydration, renal function improved and GFR increased today is 47, creatinine is 1.22. A shunt also will be sent home on insulin. She will take 9 units of Humalog with meals 3 times a day and 20 units of Lantus at bedtime. I have given her a glucometer and strips sufficient for 4 times a day for 30 days. I also sent her home with syringes. A pharmacy calls me and insurance is accepting, we will change to pens. Patient's other labs are stable. She is ready to go home. Vitals have also been stable patient is appropriate and stable for discharge. Hospital course: Ms. Plunkett is a 51 year old female - Time Spent with Patient Total time spent providing and/or coordinating discharge services: Less than 30 minutes - Constitutional Vitals: Temp Pulse Resp BP Pulse Ox 97.6 F 71 14 141/82 94 07/31/16 11:04 07/31/16 11:04 07/31/16 11:04 07/31/16 11:04 07/31/16 11:04 General appearance: Present: A&O X 3, pleasant, no acute distress, answers questions appropriately - Head Head exam: Present: normal inspection - Eye Eye exam: Present: normal appearance, conjuntiva pink - ENT ENT exam: Present: mucous membranes moist, normal exam, normal external ear exam - Neck Neck exam general surgery: Present: normal inspection. Absent: lymphadenopathy , tenderness - Respiratory Respiratory exam: Present: CTAB. Absent: chest wall tenderness, decreased breath sounds, prolonged expiratory phase, rales, respiratory distress, rhonchi , stridor, wheezes, tachypnea - Cardiovascular Cardiovascular exam: Present: RRR, +S1, +S2. Absent: diastolic murmur, systolic murmur - GI/Abdominal GI/Abdominal exam: Present: normal bowel sounds, soft. Absent: hepatomegaly, tenderness - Extremities Exam Extremities exam: Present: normal capillary refill, warm, radial pulses palpable and symetrical. Absent: pedal edema, tenderness - Neurological Exam Neurological exam: Present: alert, oriented X3, no focal deficits, strengths equal and symetr throughout. Absent: facial droop, speech deficit
== END 2016-07-31 13:35 | disposition home or self-care (01) ==
LOC: EMEROO 16:59 → 3BNU 16:59
PROVIDERS: ADMIT Registered Nurse; ATTEND Registered Nurse

== ENCOUNTER 2017-12-23 10:56 | Inpatient (IN) ==
--- NOTE | 2017-12-23 11:21 | Emergency Department Note ---
Disposition Clinical Impression: Pyelonephritis Disposition: Admitted As Inpatient Condition: Good Forms: ED Satisfaction Letter, Work/School Release Abdominal Pain HPI - General Chief Complaint: ED Abdominal Pain Stated Complaint: acute pylonephritis sent from Time Seen by Provider: 12/23/17 11:02 Source: patient Mode of arrival: ambulatory Limitations: no limitations Nursing Notes Reviewed: Yes Vital Signs Reviewed: Yes - History of Present Illness HPI Narrative: Patient presents today as referral from urgent care for concern for pallor nephritis with leuk esterase positive. The patient had previous nephrectomy proximally 44 years ago. She does not get frequent urinary tract infections. Over the last 3 days she has had burning with urination that is now causing her to have right-sided flank pain. The patient's does have significant CVA tenderness, however, she does have generalized abdominal pain as well which is worse on the right side. History of stage III kidney disease. History of diabetes on insulin with blood sugars now greater than 300. Patient will undergo further evaluation for both pyelonephritis as well as uncontrolled diabetes and other possible etiologies of abdominal pain. Patient will likely require admission secondary to solitary kidney and acute pallor nephritis. Pain Scale: 8 - Related Data Home Medications Medication Instructions Recorded Confirmed Omeprazole [PriLOSEC] 40 mg PO BID 07/29/16 07/29/16 Previous Rx's Medication Instructions Recorded Insulin DETEMIR [Levemir] 20 unit SQ HS #1 unit 07/31/16 Insulin LISPRO [HumaLOG] 9 units SQ TIDWM #1 vial 07/31/16 Albuterol Sulfate [Albuterol 1 puff IH Q4HR PRN #1 hfa.aer.ad 08/01/17 Inhaler] Azithromycin [Azithromycin 6-Tab 250 mg PO PER PKG DI #6 tab 08/01/17 Pack] Benzonatate [Tessalon] 200 mg PO TID PRN #30 capsule 08/01/17 Allergies Allergy/AdvReac Type Severity Reaction Status Date / Time Hydromorphone [From Dilaudid] Allergy See Verified 12/23/17 09:57 Comments Penicillins Allergy See Verified 12/23/17 09:57 Comments sulfamethoxazole Allergy See Verified 12/23/17 09:57 [From Bactrim] Comments trimethoprim [From Bactrim] Allergy See Verified 12/23/17 09:57 Comments Review of Systems: Constitutional: Fevers and chills, weakness and fatigue Vision: No blurred vision ENT: No rhinorrhea Respiratory: No cough Allergic: No allergies : No blood in urine GI: Generalized abdominal pain is worse in the right flank with associated decrease in appetite without nausea or vomiting Hematologic: No bruising Dermatologic: No skin rash Musculoskeletal: No pain in the extremities Neuro: Denies headache, weakness, numbness of the extremities Abdominal Pain PMH - Past Medical History Medical history: Reports: dialysis, other Female Surgical History: Reports: cholecystectomy, hysterectomy, other Psychiatric history: Reports: no psych history - Social History Smoking status: Never smoker Alcohol use: Reports: none Drug use: Reports: none Physical Exam General: Well appearing, nontoxic, no acute distress Head: Normocephalic Atraumatic Eyes: PERRL, EOMI ENT: Airway patent, no stridor Neck: supple, no meningismus Chest: Lungs clear to auscultation bilateral Cardiac: Regular rate and rhythm, no murmurs, rubs or gallops Abdomen: soft, generalized tenderness with associated significant right CVA tenderness, nondistended; no guarding, rebound, or tenderness to percussion Musculoskeletal: Calves symmetric, nontender, no palpable cord Skin: No rash, normal skin tone Neuro: Alert and Oriented to person, place, and time; No focal deficit, CN 2-12 symmetric and intact Course - Reevaluation(s) Reevaluation #1: Patient requesting pain medication. She has what work that is unremarkable. CAT scan does not show any kidney stone or signs of pallor nephritis. On reevaluation after medications she continues to have right-sided flank pain and CVA tenderness. Given her history of solitary kidney and continued significant clinical symptoms, she has been given a dose of Cipro in the emergency department as she is a significant penicillin allergy as well as an allergy to Bactrim. Urine culture as well as blood cultures and then sent. We will discuss with hospitalist in regards to admission. - Consultations Consultation #1: Discussed with hospitalist, Dr. Sandoval, patient accepted for clinical pallor nephritis. Antibiotics been given, urine with significant urinary tract infection signs, blood cultures also been obtained. Vital Signs Temperature 98.5 F 12/23/17 11:00 Pulse Rate 100 12/23/17 11:00 Respiratory Rate 18 12/23/17 11:00 Blood Pressure 160/78 12/23/17 11:00 O2 Sat by Pulse Oximetry 95 12/23/17 11:00 Temperature 98.5 F 12/23/17 11:34 Pulse Rate 66 12/23/17 13:14 Respiratory Rate 18 12/23/17 11:34 Blood Pressure 135/73 12/23/17 13:14 O2 Sat by Pulse Oximetry 95 12/23/17 11:34 Oxygen Delivery Oxygen Delivery Room Air Abdominal Pain - Lab Data Result diagrams: 12/23/17 12:40 12/23/17 12:40 Lab Results 12/23/17 12/23/17 12/23/17 Range/Units 12:15 12:40 12:40 WBC 7.4 (4.3-11.1) K/mcL RBC 5.35 H (3.82-4.97) M/mcL Hgb 14.7 (11.5-15.4) g/dL Hct 44.3 (35.3-44.9) % MCV 82.8 L (83.0-100.0) fL MCH 27.5 L (28.0-33.3) pg MCHC 33.2 (31.6-35.5) g/dL RDW 12.5 (11.5-14.5) % Plt Count 187 (140-400) K/mcL MPV 9.7 (9.4-12.4) fL Immature Gran % 0.4 (0-4) % Seg Neutrophils % 65.1 % Lymphocytes % 25.6 % Monocytes % 4.7 % Eosinophils % 3.8 % Basophils % 0.4 % Neutrophils # 4.8 (1.6-8.9) K/mcL Lymphocytes # 1.9 (0.6-4.6) K/mcL Monocytes # 0.4 (0.0-1.3) K/mcL Eosinophils # 0.3 (0.0-0.6) K/mcL Basophils # 0.0 (0.0-0.2) K/mcL Sodium 135 L (136-145) mEq/L Potassium 3.9 (3.5-5.1) mEq/L Chloride 104 (98-107) mEq/L Carbon Dioxide 26 (23-29) mEq/L BUN 16 (6-20) mg/dL Creatinine 1.12 (0.60-1.20) mg/dL Est GFR ( Amer) > 60 (> 60) Est GFR (Non-Af Amer) 51 L (> 60) BUN/Creatinine Ratio 14 (6-26) Glucose 272 H (70-105) mg/dL Calculated Osmolality 291 (280-300) Calcium 8.9 (8.6-10.3) mg/dL Total Bilirubin 0.6 (0.3-1.0) mg/dL Direct Bilirubin 0.3 H (0.0-0.2) mg/dL Indirect Bilirubin 0.3 (0.0-1.2) mg/dL AST 35 (13-39) Units/L ALT 56 H (7-52) Units/L Alkaline Phosphatase 138 H (34-104) Units/L Serum Total Protein 6.7 (6.4-8.9) g/dL Albumin 3.5 (3.5-5.7) g/dL Globulin 3.2 (2.4-3.5) g/dL Albumin/Globulin Ratio 1.1 (1.1-2.2) Lipase 51 (11-82) Units/L Urine Color Yellow (Yellow) Urine Clarity Cloudy A (Clear) Urine pH 6.0 (5.0-8.0) pH Units Ur Specific Cecil 1.008 L (1.010-1.025) Urine Protein 100 H (Neg-Trace) mg/dL Urine Glucose (UA) 500 H (Normal) mg/dL Urine Ketones Negative (Negative) mg/dL Urine Blood Large H (Negative) Urine Nitrite Negative (Negative) Urine Bilirubin Negative (Negative) Urine Urobilinogen Normal (Normal) mg/dL Ur Leukocyte Esterase Large H (Negative) Urine Microscopic RBC TNTC H (0-3) per hpf Urine Microscopic WBC TNTC H (0-3) per hpf Ur Squamous Epith Cells Moderate H (None-Few) per lpf Urine Bacteria Moderate H (None-Few) per hpf Hyaline Casts None Seen (None-Few) per lpf Ur Culture Indicated? YES A (NO)
[2017-12-23] MEDS ORDERED: 0.9 % Sodium Chloride 1,000 ML IVC ONE (11:23)
[2017-12-23 12:30] LABS: Bilirubin,Urine Negative (Negative); Blood,Urine Large (Negative); Clarity,Urine Cloudy (Clear); Color,Urine Yellow (Yellow); Glucose,Urine (UA) 500 mg/dL (Normal); Ketones,Urine Negative (Negative); Leukocyte Esterase,Urine Large (Negative); Nitrite,Urine Negative (Negative); Protein,Urine 100 mg/dL (Neg-Trace); Specific Gravity,Urine 1.008 (1.010-1.025); Urobilinogen,Urine Normal (Normal)
[2017-12-23 12:31] LABS: Bacteria,Urine Moderate per hpf (None-Few); Hyaline Casts,Urine None Seen per lpf (None-Few); RBC,Urine TNTC per hpf (0-3); Squamous Epithelial Cell,Urine Moderate per lpf (None-Few); WBC,Urine TNTC per hpf (0-3)
[2017-12-23] MEDS ORDERED: *HR* Morphine 2 MG/ML SYRINGE IVP ONE (12:57)
[2017-12-23] MEDS ORDERED: Ondansetron 4 MG/2 ML VIAL IVP ONE (12:57)
[2017-12-23 13:10] LABS: Basophils % 0.4 %; Eosinophils # 0.3 K/mcL (0.0-0.6); Eosinophils % 3.8 %; Hematocrit 44.3 % (35.3-44.9); Hemoglobin 14.7 g/dL (11.5-15.4); Immature Granulocytes % 0.4 % (0-4); Lymphocytes # 1.9 K/mcL (0.6-4.6); Lymphocytes % 25.6 %; Mean Corpuscular HGB Conc 33.2 g/dL (31.6-35.5); Mean Corpuscular Hemoglobin 27.5 pg (28.0-33.3); Mean Corpuscular Volume 82.8 fL (83.0-100.0); Mean Platelet Volume 9.7 fL (9.4-12.4); Monocytes # 0.4 K/mcL (0.0-1.3); Monocytes % 4.7 %; Neutrophils # 4.8 K/mcL (1.6-8.9); Platelet Count 187 K/mcL (140-400); Red Blood Count 5.35 M/mcL (3.82-4.97); Red Cell Distribution Width 12.5 % (11.5-14.5); Segmented Neutrophils % 65.1 %
[2017-12-23 13:35] LABS: Alanine Aminotransferase 56 Units/L (7-52); Albumin 3.5 g/dL (3.5-5.7); Albumin/Globulin Ratio 1.1 (1.1-2.2); Alkaline Phosphatase 138 Units/L (34-104); Aspartate Amino Transferase 35 Units/L (13-39); BUN/Creatinine Ratio 14 (6-26); Bilirubin,Direct 0.3 mg/dL (0.0-0.2); Bilirubin,Indirect 0.3 mg/dL (0.0-1.2); Bilirubin,Total 0.6 mg/dL (0.3-1.0); Blood Urea Nitrogen 16 mg/dL (6-20); Calcium 8.9 mg/dL (8.6-10.3); Carbon Dioxide 26 mEq/L (23-29); Chloride 104 mEq/L (98-107); Globulin 3.2 g/dL (2.4-3.5); Glucose 272 mg/dL (70-105); Lipase 51 Units/L (11-82); Osmolality,Calculated 291 (280-300); Potassium 3.9 mEq/L (3.5-5.1); Sodium 135 mEq/L (136-145); Total Protein 6.7 g/dL (6.4-8.9); eGFR For Non-African Americans 51 (> 60)
[2017-12-23] MEDS ORDERED: Naloxone 0.4 MG/ML INJ IVP PRN (15:43)
--- NOTE | 2017-12-23 17:07 | Internal Med History&Physical ---
Date of Encounter: 12/23/17 Time of Encounter: 16:05 Internal Medicine - H&P: HPI Chief complaint: fever, burning urination Admitted From: Home History of present illness: Ms. Plunkett is a 52 year old female with past medical history of diabetes, GERD, CKD, left nephrectomy since childhood who was sent from urgent care with concerns of acute pyelonephritis. Patient complains of burning urination for past 3 days. Has associated right-sided flank pain as well as right-sided abdominal pain for past 2 days. She measured fever of 103 at home associated with chills and nausea. She has had a left-sided nephrectomy since childhood when she was 8 and was told was taken out it was not growing well and possibly leading to seizure disorder. She denies any bowel complaints. Patient's diabetes has been poorly controlled for past 2-3 weeks. Her last A1c was 9.1. Her insulin was increased to 30 at bedtime 2 weeks ago. Her sugar numbers are in 300s and 400s or past 2 weeks. She received ciprofloxacin given history of penicillin allergy and 1 L of normal saline in ER. On interview patient still with right-sided pain which is about 8 x 10 in intensity and is nonradiating. Associated with some nausea. Currently afebrile. On review of her chart she did receive treatment with Keflex about a month ago for UTI. She was also getting treatment for candidal infection. Past Med Surg Social Fam HX - Past Medical History Medical history: dialysis, other Additional medical history: cervical Psychiatric history: no psych history - Past Surgical History Surgical History: cholecystectomy, hysterectomy, other Additional surgical history: L-kidney removed, Lymph node removed from L-side of neck. - Social History Smoking Status: Never smoker Smokeless Tobacco Status: No Alcohol use: none Drug use: none - Family History Father Living Status: Still Living Hx Family Endocrine Disorder: Yes (DM) Mother Living Status: Hx Family Respiratory Disorders: Yes (COPD, emphysema) Hx Family Cancer: Yes (Melanoma) Hx Family Endocrine Disorder: Yes (DM) Internal Medicine - H&P: Meds Omeprazole [PriLOSEC] 40 mg PO DAILY 07/29/16 [History] Albuterol Sulfate [Proair Hfa] 2 puff IH Q4H PRN 12/23/17 [History] Insulin Glargine,Hum.rec.anlog [Basaglar Kwikpen U-100] 30 unit SQ HS 12/23/17 [ History] Oxycodone HCl [Oxaydo] 5 mg PO TID PRN 12/23/17 [History] 3 Allergy/AdvReac Type Severity Reaction Status Date / Time Hydromorphone [From Dilaudid] Allergy See Verified 12/23/17 09:57 Comments Penicillins Allergy See Verified 12/23/17 09:57 Comments sulfamethoxazole Allergy See Verified 12/23/17 09:57 [From Bactrim] Comments trimethoprim [From Bactrim] Allergy See Verified 12/23/17 09:57 Comments All Systems PM: A 10-system review of systems was performed and is negative for pertinent findings except as documented above in the HPI. - Constitutional Vitals: Temp Pulse Resp BP Pulse Ox 98.5 F 67 16 139/67 97 12/23/17 11:34 12/23/17 14:15 12/23/17 14:15 12/23/17 14:15 12/23/17 14:15 General appearance: Present: A&O X 3, no acute distress Exam: Constitutional: Vitals as noted. Conversant. No Apparent Distress. No obvious deformities. Eyes exam: Sclera white, conjunctiva clear, no lid lag, PEARLA. ENT exam: Grossly normal hearing. Nasophargeal and Oropharyngeal exam unremarkable. Moist mucus membranes. No JVD, no cervical lymphadenopathy. no thyromegaly or mass. Respiratory exam: Clear to auscultation bilaterally. No accessory muscle use, rales, rhonchi or wheezes Cardiovascular exam: RRR, +S1, +S2. no murmur, gallop, rubs. No chest wall tenderness GI/Abdominal exam: Soft, normal bowel sounds, soft, no peritoneal signs. no orgenomegaly or mass appreciated. Rt Flank, RLQ, RUQ and suprapubic tenderness. Musculoskeletal exam: full ROM, no atrophy or deformity noted. no edema or cyanosis, warm, pulses palpable and symmetrical in UE/LE. no calf tenderness. Neurological exam: AO X3, CN II-XII grossly intact, grossly normal motor and sensory exam. Skin exam: No skin rash, lesions or ulcers noted. no purpura or ecchymosis. Pych: Good insight and judgement. Intact memory. AOx3. Mood and affect Internal Med - H&P Results - Labs CBC & Chem 7: 12/23/17 12:40 12/23/17 12:40 - Assessment and plan (1) Acute pyelonephritis Current Visit: No Status: Acute Assessment and plan: - UA consistent with UTI as well as exam consistent with clinical pyelonephritis even though CAT scan is unremarkable - Given treatment with antibiotics month ago we will treat for drug-resistant UTI - Patient has a remote history of penicillin allergy which was hives. - Discussed with patient about treatment with Zosyn being the best option. Understands it might due to allergic reaction. Will monitor for allergic reaction - Continue IV hydration with normal saline - Follow-up urine and blood cultures (2) DVT prophylaxis Current Visit: No Status: Acute Assessment and plan: - Heparin sc (3) CKD (chronic kidney disease) stage 3, GFR 30-59 ml/min Current Visit: No Status: Chronic (4) Diabetes type 2, uncontrolled Current Visit: No Status: Chronic Assessment and plan: - Continue home Levemir 30, sliding scale insulin with meals and Accu-Cheks Qualifiers: Glycemic state: with hyperglycemia Qualified Code(s): E11.65 - Type 2 diabetes mellitus with hyperglycemia (5) Solitary kidney Current Visit: No Status: Chronic - Time Spent With Patient Total time spent is greater than 50% in coordination of care (as documented) at patient's floor/unit and/or counseling patient:
[2017-12-23] MEDS: Piperacillin/Tazobactam 3.375 GM in 0.9 % Sodium Chloride Mini Bag 100 ML IVPB SCH ×2 (17:17→23:54)
[2017-12-23] MEDS: *HR* OxyCODONE Immed Rel 5 MG TABLET PO PRN (18:15)
[2017-12-23] MEDS: 0.9 % Sodium Chloride 1,000 ML IVC SCH (18:28)
[2017-12-23] MEDS: Acetaminophen 325 MG TABLET PO PRN (20:13)
[2017-12-23] MEDS: *HR* Heparin 5,000 UNIT/ML VIAL SQ SCH (21:50)
[2017-12-23] MEDS: Insulin DETEMIR 100 UNIT/ML X5UNITS SQ SCH (21:50)
[2017-12-24 03:58] LABS: Basophils % 0.4 %; Eosinophils # 0.3 K/mcL (0.0-0.6); Eosinophils % 4.4 %; Hematocrit 43.8 % (35.3-44.9); Hemoglobin 14.8 g/dL (11.5-15.4); Immature Granulocytes % 0.4 % (0-4); Lymphocytes # 2.1 K/mcL (0.6-4.6); Lymphocytes % 31.3 %; Mean Corpuscular HGB Conc 33.8 g/dL (31.6-35.5); Mean Corpuscular Volume 82.8 fL (83.0-100.0); Mean Platelet Volume 10.4 fL (9.4-12.4); Monocytes # 0.4 K/mcL (0.0-1.3); Monocytes % 5.8 %; Neutrophils # 3.9 K/mcL (1.6-8.9); Platelet Count 153 K/mcL (140-400); Red Blood Count 5.29 M/mcL (3.82-4.97); Red Cell Distribution Width 12.4 % (11.5-14.5); Segmented Neutrophils % 57.7 %
[2017-12-24 04:20] LABS: Potassium 4.3 mEq/L (3.5-5.1)
[2017-12-24] MEDS: *HR* Heparin 5,000 UNIT/ML VIAL SQ SCH ×3 (07:08→21:45)
[2017-12-24] MEDS: Piperacillin/Tazobactam 3.375 GM in 0.9 % Sodium Chloride Mini Bag 100 ML IVPB SCH ×3 (08:11→23:41)
[2017-12-24] MEDS: *HR* OxyCODONE Immed Rel 5 MG TABLET PO PRN ×2 (08:11→19:03)
[2017-12-24] MEDS: Insulin LISPRO 300 UNITS/3 ML VIAL SQ SCH ×3 (08:17→17:12)
[2017-12-24] MEDS: 0.9 % Sodium Chloride 1,000 ML IVC SCH ×2 (08:17→19:02)
[2017-12-24] MEDS: Ondansetron 4 MG/2 ML VIAL IVP PRN (10:53)
--- NOTE | 2017-12-24 11:48 | Internal Med Progress Note ---
Hospitalist Progress Note - Encounter Date of Encounter: 12/24/17 Time of Encounter: 11:47 - Subjective Interval History: Patient seen and examined this morning. No acute overnight events. Denies new complains. Some nausea this morning. No vomiting. No fever, chills or diarrhea. Feeling better. Pain improved. - Exam Vitals: Temp Pulse Resp BP Pulse Ox 98.4 F 75 16 111/75 98 12/24/17 07:56 12/24/17 07:56 12/24/17 07:56 12/24/17 07:56 12/24/17 07:56 Exam: ENT exam: Grossly normal hearing. Nasophargeal and Oropharyngeal exam unremarkable. Moist mucus membranes. No JVD, no cervical lymphadenopathy. no thyromegaly or mass. Respiratory exam: Clear to auscultation bilaterally. No accessory muscle use, rales, rhonchi or wheezes Cardiovascular exam: RRR, +S1, +S2. no murmur, gallop, rubs. No chest wall tenderness GI/Abdominal exam: Soft, normal bowel sounds, soft, no peritoneal signs. no orgenomegaly or mass appreciated. minimal Rt Flank, RLQ, RUQ and suprapubic tenderness. Musculoskeletal exam: full ROM, no atrophy or deformity noted. no edema or cyanosis, warm, pulses palpable and symmetrical in UE/LE. no calf tenderness. Neurological exam: AO X3, CN II-XII grossly intact, grossly normal motor and sensory exam. Skin exam: No skin rash, lesions or ulcers noted. no purpura or ecchymosis. - Assessment and Plan (1) Acute pyelonephritis Current Visit: No Status: Inactive (2) DVT prophylaxis Current Visit: No Status: Acute (3) CKD (chronic kidney disease) stage 3, GFR 30-59 ml/min Current Visit: No Status: Chronic (4) Diabetes type 2, uncontrolled Current Visit: No Status: Chronic (5) Solitary kidney Current Visit: No Status: Chronic - Time Spent with Patient Total time spent is greater than 50% in coordination of care (as documented) at patient's floor/unit and/or counseling patient: Internal Medicine: Result - Labs CBC & Chem 7: 12/24/17 03:33 12/24/17 03:33 Labs: Short CBC 12/24/17 Range/Units 03:33 WBC 6.8 (4.3-11.1) K/mcL Hgb 14.8 (11.5-15.4) g/dL Hct 43.8 (35.3-44.9) % Plt Count 153 (140-400) K/mcL Neutrophils # 3.9 (1.6-8.9) K/mcL [facility] 12/24/17 03:33 Sodium 133 L Potassium 4.3 Chloride 104 Carbon Dioxide 24 BUN 13 Creatinine 1.19 Glucose 258 H Calcium 9.0 Consult Discharge Plan - Plan Referrals: Ethan Pratt MD [Primary Care Provider] - (4) Diabetes type 2, uncontrolled Qualifiers: Glycemic state: with hyperglycemia Qualified Code(s): E11.65 - Type 2 diabetes mellitus with hyperglycemia
[2017-12-24] MEDS: Acetaminophen 325 MG TABLET PO PRN (15:29)
[2017-12-24] MEDS: Insulin DETEMIR 100 UNIT/ML X5UNITS SQ SCH (21:45)
[2017-12-25 01:32] LABS: Basophils % 0.7 %; Eosinophils # 0.3 K/mcL (0.0-0.6); Eosinophils % 4.2 %; Hematocrit 38.5 % (35.3-44.9); Immature Granulocytes % 0.3 % (0-4); Lymphocytes # 1.9 K/mcL (0.6-4.6); Lymphocytes % 32.2 %; Mean Corpuscular HGB Conc 34.3 g/dL (31.6-35.5); Mean Corpuscular Hemoglobin 28.2 pg (28.0-33.3); Mean Corpuscular Volume 82.3 fL (83.0-100.0); Mean Platelet Volume 9.5 fL (9.4-12.4); Monocytes # 0.4 K/mcL (0.0-1.3); Monocytes % 6.4 %; Neutrophils # 3.4 K/mcL (1.6-8.9); Platelet Count 168 K/mcL (140-400); Red Blood Count 4.68 M/mcL (3.82-4.97); Red Cell Distribution Width 12.8 % (11.5-14.5); Segmented Neutrophils % 56.2 %
[2017-12-25 01:51] LABS: Calcium 8.4 mg/dL (8.6-10.3); Hemoglobin 13.2 g/dL (11.5-15.4)
[2017-12-25] MEDS: 0.9 % Sodium Chloride 1,000 ML IVC SCH ×3 (04:13→23:50)
[2017-12-25] MEDS: *HR* Heparin 5,000 UNIT/ML VIAL SQ SCH ×3 (05:45→21:21)
[2017-12-25] MEDS: Piperacillin/Tazobactam 3.375 GM in 0.9 % Sodium Chloride Mini Bag 100 ML IVPB SCH ×3 (07:50→23:50)
[2017-12-25] MEDS: Insulin LISPRO 300 UNITS/3 ML VIAL SQ SCH ×3 (07:53→16:26)
[2017-12-25] MEDS: Ondansetron 4 MG/2 ML VIAL IVP PRN (08:55)
[2017-12-25] MEDS: *HR* OxyCODONE Immed Rel 5 MG TABLET PO PRN ×2 (08:55→21:21)
--- NOTE | 2017-12-25 11:13 | Internal Med Progress Note ---
Hospitalist Progress Note - Encounter Date of Encounter: 12/25/17 Time of Encounter: 08:23 - Subjective Interval History: Patient seen and examined this morning. No acute overnight events. Denies new complains. Nausea and pain resolved. No fever, chills or diarrhea. - Exam Vitals: Temp Pulse Resp BP Pulse Ox 98.1 F 67 16 132/76 99 12/25/17 10:16 12/25/17 10:16 12/25/17 10:16 12/25/17 10:16 12/25/17 10:16 Exam: ENT exam: Grossly normal hearing. Nasophargeal and Oropharyngeal exam unremarkable. Moist mucus membranes. No JVD, no cervical lymphadenopathy. no thyromegaly or mass. Respiratory exam: Clear to auscultation bilaterally. No accessory muscle use, rales, rhonchi or wheezes Cardiovascular exam: RRR, +S1, +S2. no murmur, gallop, rubs. No chest wall tenderness GI/Abdominal exam: Soft, normal bowel sounds, soft, no peritoneal signs. no orgenomegaly or mass appreciated. No abdominal tenderness. Musculoskeletal exam: full ROM, no atrophy or deformity noted. no edema or cyanosis, warm, pulses palpable and symmetrical in UE/LE. no calf tenderness. Neurological exam: AO X3, CN II-XII grossly intact, grossly normal motor and sensory exam. Skin exam: No skin rash, lesions or ulcers noted. no purpura or ecchymosis. - Assessment and Plan (1) Acute pyelonephritis Current Visit: No Status: Inactive (2) DVT prophylaxis Current Visit: No Status: Acute (3) CKD (chronic kidney disease) stage 3, GFR 30-59 ml/min Current Visit: No Status: Chronic (4) Diabetes type 2, uncontrolled Current Visit: No Status: Chronic (5) Solitary kidney Current Visit: No Status: Chronic - Summary of Assessment and Plan Summary of Assessment and Plan: Acute pyelonephritis - c/w zosyn. No allergic reaction documented. - f/u final cultures report. Urine growing gram neg rods - Continue IV hydration with normal saline DVT prophylaxis - Heparin sc Diabetes type 2, uncontrolled - Continue home Levemir 30, sliding scale insulin with meals and Accu-Cheks - will need to discharge on Premeal insulin for better sugar control. - Time Spent with Patient Total time spent is greater than 50% in coordination of care (as documented) at patient's floor/unit and/or counseling patient: Internal Medicine: Result - Labs CBC & Chem 7: 12/25/17 00:56 12/25/17 00:56 Labs: Short CBC 12/25/17 Range/Units 00:56 WBC 6.0 (4.3-11.1) K/mcL Hgb 13.2 D (11.5-15.4) g/dL Hct 38.5 (35.3-44.9) % Plt Count 168 (140-400) K/mcL Neutrophils # 3.4 (1.6-8.9) K/mcL BMP 12/25/17 00:56 Sodium 138 Potassium 4.0 Chloride 109 H Carbon Dioxide 26 BUN 13 Creatinine 1.16 Glucose 254 H Calcium 8.4 L Consult Discharge Plan - Plan Referrals: Ethan Pratt MD [Primary Care Provider] - (4) Diabetes type 2, uncontrolled Qualifiers: Glycemic state: with hyperglycemia Qualified Code(s): E11.65 - Type 2 diabetes mellitus with hyperglycemia
[2017-12-25] MEDS: Acetaminophen 325 MG TABLET PO PRN (13:13)
[2017-12-25] MEDS: Insulin DETEMIR 100 UNIT/ML X5UNITS SQ SCH (21:21)
[2017-12-26] MEDS: *HR* Heparin 5,000 UNIT/ML VIAL SQ SCH (05:50)
[2017-12-26 06:52] VITALS: BP 159/93
[2017-12-26] MEDS: Insulin LISPRO 300 UNITS/3 ML VIAL SQ SCH (07:40)
[2017-12-26] MEDS: Piperacillin/Tazobactam 3.375 GM in 0.9 % Sodium Chloride Mini Bag 100 ML IVPB SCH (07:41)
--- NOTE | 2017-12-26 09:33 | Discharge Summary ---
- NOTES TO OUTPATIENT PROVIDER Notes to Outpatient Provider: Started on pre-meal insulin for better blood sugar control. will finish 10 day course of antibiotics. Date of Encounter: 12/26/17 Time of Encounter: 09:28 - Discharge Diagnosis (1) Acute pyelonephritis Priority: Primary Status: Inactive (2) DVT prophylaxis Priority: Secondary Status: Acute (3) CKD (chronic kidney disease) stage 3, GFR 30-59 ml/min Priority: Secondary Status: Chronic (4) Diabetes type 2, uncontrolled Priority: Secondary Status: Chronic Qualifiers: Glycemic state: with hyperglycemia Qualified Code(s): E11.65 - Type 2 diabetes mellitus with hyperglycemia (5) Solitary kidney Priority: Secondary Status: Chronic Hospital course: Ms. Plunkett is a 52 year old female with past medical history of difficult to control diabetes, GERD, COPD with history of left nephrectomy was admitted for pyelonephritis. CT did not show findings however left flank tenderness high- grade fever. Patient was started on Zosyn initially for pyelonephritis. Urine culture Enterobacter cloacae sensitive to third generation cephalosporins. She was given 7 days course of cefdinir to finish 10 day course of antibiotics. She was also started on premeal insulin 5 units before discharge for better BG control. Will follow with PCP in 1 week. Discharge discussed with: patient, family, nurse - Time Spent with Patient Total time spent providing and/or coordinating discharge services: Greater than 30 minutes - Discharge Medications Prescriptions: Cefdinir [Omnicef] 300 mg PO BID 7 Days #14 capsule Insulin LISPRO [HumaLOG] 5 units SQ TIDAC 30 Days #1 vial Home Medications: Omeprazole [PriLOSEC] 40 mg PO DAILY 07/29/16 [History] Albuterol Sulfate [Proair Hfa] 2 puff IH Q4H PRN 12/23/17 [History] Insulin Glargine,Hum.rec.anlog [Basaglar Kwikpen U-100] 30 unit SQ HS 12/23/17 [ History] Oxycodone HCl [Oxaydo] 5 mg PO TID PRN 12/23/17 [History] Cefdinir [Omnicef] 300 mg PO BID 7 Days #14 capsule 12/26/17 [Rx] Insulin LISPRO [HumaLOG] 5 units SQ TIDAC 30 Days #1 vial 12/26/17 [Rx] Allergies/Adverse Reactions: 3 Allergy/AdvReac Type Severity Reaction Status Date / Time Hydromorphone [From Dilaudid] Allergy See Verified 12/23/17 09:57 Comments Penicillins Allergy See Verified 12/23/17 09:57 Comments sulfamethoxazole Allergy See Verified 12/23/17 09:57 [From Bactrim] Comments trimethoprim [From Bactrim] Allergy See Verified 12/23/17 09:57 Comments Date of admission: 12/24/17 15:25 Primary care physician: Ethan Pratt MD Discharging clinician: Jose Almaraz - Constitutional Vitals: Temp Pulse Resp BP Pulse Ox 97.9 F 86 15 159/93 97 12/26/17 06:51 12/26/17 06:51 12/26/17 06:51 12/26/17 06:51 12/26/17 06:51 General appearance: Present: A&O X 3, no acute distress Exam: ENT exam: Grossly normal hearing. Nasophargeal and Oropharyngeal exam unremarkable. Moist mucus membranes. No JVD, no cervical lymphadenopathy. no thyromegaly or mass. Respiratory exam: Clear to auscultation bilaterally. No accessory muscle use, rales, rhonchi or wheezes Cardiovascular exam: RRR, +S1, +S2. no murmur, gallop, rubs. No chest wall tenderness GI/Abdominal exam: Soft, normal bowel sounds, soft, no peritoneal signs. no orgenomegaly or mass appreciated. No abdominal tenderness. Musculoskeletal exam: full ROM, no atrophy or deformity noted. no edema or cyanosis, warm, pulses palpable and symmetrical in UE/LE. no calf tenderness. Neurological exam: AO X3, CN II-XII grossly intact, grossly normal motor and sensory exam. Skin exam: No skin rash, lesions or ulcers noted. no purpura or ecchymosis. - Patient Status Disposition: Home, Self-Care - Discharge Instructions Follow Up With: Ethan Pratt MD [Primary Care Provider] - - Diet and Activity Activity: resume usual activities as tolerated
== END 2017-12-26 09:51 | disposition home or self-care (01) | DRG 463 ==
LOC: 3ANU 10:56 → EMEROOARM 10:56 → SUATTDRO 14:08 → 3ANU 15:26
PROVIDERS: ADMIT Internal Medicine; ATTEND Internal Medicine

== ENCOUNTER 2018-12-07 10:29 | Observation (INO) ==
[2018-12-07] MEDS ORDERED: Morphine Sulfate 2 MG/ML SYRINGE IVP ONE (10:40)
[2018-12-07] MEDS ORDERED: Pantoprazole 40 MG VIAL IVP ONE (10:40)
[2018-12-07] MEDS ORDERED: 0.9 % Sodium Chloride 1,000 ML IVC ONE ×2 (10:40→12:30)
[2018-12-07] MEDS ORDERED: Metoclopramide 10 MG/2 ML VIAL IVP ONE (10:41)
[2018-12-07] MEDS ORDERED: Ondansetron 4 MG/2 ML VIAL IVP ONE (10:41)
[2018-12-07] MEDS ORDERED: Isovue-370 500 ML BOTTLE IVP ONE (10:42)
--- NOTE | 2018-12-07 11:04 | Emergency Department Note ---
Disposition Clinical Impression: Abdominal pain, Elevated transaminase level Disposition: Admitted As Inpatient Condition: Fair Forms: ED Satisfaction Letter, Work/School Release Time of Disposition: 14:58 Abdominal Pain HPI - General Chief Complaint: ED Abdominal Pain Stated Complaint: Multiple Complaints Time Seen by Provider: 12/07/18 10:38 Source: patient - History of Present Illness HPI Narrative: Patient is 53-year-old female who presents here with complaints of abdominal pain, nausea and vomiting. This is her third visit to the emergency room the l ast 4 days. Patient was apparently diagnosed with gastritis. The patient denies any black or bloody stools. The patient states that she has been having significant vomiting. The patient states at times she does have some blood streaks in her vomit. She denies any fevers, chills, cough or congestion. Patient states that the pain is somewhat generalized in the abdomen, worse over the epigastric and left side of the abdomen. Patient states the pain level VII on a 10 scale. The patient is on chronic oxycodone for her back. She is also diabetic. She has been never diagnosed with gastroparesis. The patient has had no urinary complaints. The patient apparently has been seen by her family doctor who referred her back to the emergency room. Patient was going to get scheduled to be seen by GI, however they sent her back to the emergency room stating that she should have been admitted most likely on Wednesday when she came in with similar complaints. Pain Scale: 8 - Related Data Home Medications Medication Instructions Recorded Confirmed Albuterol Sulfate [Proair Hfa] 2 puff IH Q4H PRN 12/23/17 12/03/18 Oxycodone HCl [Oxaydo] 5 mg PO TID PRN 12/23/17 12/03/18 Basaglar Kwikpen U-100 20 units SQ BID 12/03/18 12/03/18 Previous Rx's Medication Instructions Recorded Cefdinir [Omnicef] 300 mg PO BID 7 Days #14 capsule 12/26/17 Morphine Sulfate Immed Rel 15 mg PO Q4HR PRN 1 Days #6 tab 12/03/18 [Morphine Sulfate] Ondansetron ODT [Zofran ODT] 4 mg SL Q6HR PRN #8 tab.rapdis 12/03/18 Famotidine [Pepcid] 20 mg PO BID #20 tablet 12/04/18 Pantoprazole Sodium [Protonix] 40 mg PO DAILY #20 tablet. 12/04/18 Sucralfate [Carafate] 1 gm PO QIDA #20 tablet 12/04/18 Allergies Allergy/AdvReac Type Severity Reaction Status Date / Time hydromorphone [From Dilaudid] Allergy See Verified 12/04/18 10:20 Comments Penicillins Allergy See Verified 12/04/18 10:20 Comments sulfamethoxazole Allergy See Verified 12/04/18 10:20 [From Bactrim] Comments trimethoprim [From Bactrim] Allergy See Verified 12/04/18 10:20 Comments Review of Systems: As mentioned per history of present illness and as follows. Constitutional: Negative for chills or fever HENT: Negative for sore throat. Eyes: Negative for visual disturbance Respiratory: Negative for shortness of breath. Cardiovascular: Negative for palpitations. Gastrointestinal: Positive for abdominal pain Genitourinary: Negative for dysuria Musculoskeletal: Positive for back pain. Skin: Negative for rash. Neurological: Negative for focal weakness Psychiatric/Behavioral: Negative for depression Abdominal Pain PMH - Past Medical History Medical history: Reports: cancer, diabetes, renal disease, other Female Surgical History: Reports: cholecystectomy, hysterectomy Psychiatric history: Reports: no psych history - Social History Smoking status: Never smoker Alcohol use: Reports: occasionally Drug use: Reports: none Physical Exam PHYSICAL EXAM Constitutional: Well developed, Well nourished, No acute distress, Non-toxic appearance. HENT: Normocephalic, Atraumatic, Bilateral external ears normal, Oropharynx moist, No oral exudates, Nose normal. Neck- Normal range of motion, No tendern ess, Supple. Eyes: PERRL, EOMI, Conjunctiva normal,. Cardiovascular: Regular rate and rhythm without clicks, rubs, gallops or murmurs. Respiratory: Normal breath sounds, No respiratory distress, No wheezing, rhonchi, or crackles. GI: Soft, tenderness noted to the epigastric region, there is also some tenderness of the left side of the abdomen and left upper and lower quadrants, also some tenderness over the right side of the abdomen, no evidence of guarding or peritoneal signs. Bowel sounds are active. Musculoskeletal: Good range of motion in all major joints. No tenderness to palpation or major deformities noted. +5/5 strength noted to all extremities. Integument: Warm, Dry, No erythema, No rash. No edema. Neurologic: Alert & oriented x 3, Normal sensory function, No focal deficits noted. CN II-XII grossly intact. - General Limitations: no limitations General appearance: alert, in no apparent distress Course Vital Signs Temperature 97.8 F 12/07/18 10:30 Pulse Rate 77 12/07/18 10:30 Respiratory Rate 18 12/07/18 10:30 Blood Pressure 167/85 12/07/18 10:30 O2 Sat by Pulse Oximetry 97 12/07/18 10:30 Temperature 97.8 F 12/07/18 10:30 Pulse Rate 78 12/07/18 13:23 Respiratory Rate 14 12/07/18 13:23 Blood Pressure 139/80 12/07/18 13:23 O2 Sat by Pulse Oximetry 98 12/07/18 13:23 Oxygen Delivery Oxygen Delivery Room Air Abdominal Pain - MDM Narrative Medical decision making narrative: Patient here in the emergency room it was a difficult IV access, we will evaluate will establish an IV. The patient did receive medications and seemed to improve her symptoms. The patient did have a workup that did show some elevated transaminase levels. The patient had a CT of the abdomen and pelvis, this only showed evidence of a fatty liver, no other acute findings were noted. The patient was noted to have a significantly elevated blood sugar at 490, there is no evidence of DKA. Patient was given IV fluids as well as IV insulin here in the emergency room. The patient is no other evidence of acute surgical condition. However, given that she is overall feeling outpatient management of this condition patient is going to be admitted for further evaluation, possible GI evaluation as well. The patient this point time is already status post cholecystectomy, do not believe that the patient has any again surgical issue ongoing. The patient will be admitted in stable condition. Final impression 1. Epigastric abdominal pain 2. Persistent nausea and vomiting 3. Elevated transaminase levels - Lab Data Result diagrams: 12/07/18 11:16 12/07/18 11:16 Lab Results 12/07/18 12/07/18 Range/Units 11:16 11:16 WBC 4.5 (4.3-11.1) K/mcL RBC 5.57 H (3.82-4.97) M/mcL Hgb 15.8 H D (11.5-15.4) g/dL Hct 46.2 H (35.3-44.9) % MCV 82.9 L (83.0-100.0) fL MCH 28.4 (28.0-33.3) pg MCHC 34.2 (31.6-35.5) g/dL RDW 12.1 (11.5-14.5) % Plt Count 155 (140-400) K/mcL MPV 9.9 (9.4-12.4) fL Immature Gran % 0.4 (0-4) % Seg Neutrophils % 62.0 % Lymphocytes % 27.2 % Monocytes % 5.1 % Eosinophils % 4.9 % Basophils % 0.4 % Neutrophils # 2.8 (1.6-8.9) K/mcL Lymphocytes # 1.2 (0.6-4.6) K/mcL Monocytes # 0.2 (0.0-1.3) K/mcL Eosinophils # 0.2 (0.0-0.6) K/mcL Basophils # 0.0 (0.0-0.2) K/mcL Sodium 134 L (136-145) mEq/L Potassium 4.2 (3.5-5.1) mEq/L Chloride 97 L (98-107) mEq/L Carbon Dioxide 28 (23-29) mEq/L BUN 12 (6-20) mg/dL Creatinine 1.10 (0.60-1.20) mg/dL Est GFR ( Amer) > 60 (> 60) Est GFR (Non-Af Amer) 52 L (> 60) BUN/Creatinine Ratio 11 (6-26) Glucose 490 H (70-105) mg/dL Calculated Osmolality 300 (280-300) Calcium 9.4 (8.6-10.3) mg/dL Total Bilirubin 0.8 (0.3-1.0) mg/dL Direct Bilirubin 0.3 H (0.0-0.2) mg/dL Indirect Bilirubin 0.5 (0.0-1.2) mg/dL AST 99 H (13-39) Units/L ALT 135 H (7-52) Units/L Alkaline Phosphatase 206 H (34-104) Units/L Troponin I < 0.03 (< 0.04) ng/mL Serum Total Protein 7.0 (6.4-8.9) g/dL Albumin 3.8 (3.5-5.7) g/dL Globulin 3.2 (2.4-3.5) g/dL Albumin/Globulin Ratio 1.2 (1.1-2.2) Lipase 57 (11-82) Units/L
[2018-12-07 11:44] LABS: Basophils % 0.4 %; Eosinophils # 0.2 K/mcL (0.0-0.6); Eosinophils % 4.9 %; Hematocrit 46.2 % (35.3-44.9); Immature Granulocytes % 0.4 % (0-4); Lymphocytes # 1.2 K/mcL (0.6-4.6); Lymphocytes % 27.2 %; Mean Corpuscular HGB Conc 34.2 g/dL (31.6-35.5); Mean Corpuscular Hemoglobin 28.4 pg (28.0-33.3); Mean Corpuscular Volume 82.9 fL (83.0-100.0); Mean Platelet Volume 9.9 fL (9.4-12.4); Monocytes # 0.2 K/mcL (0.0-1.3); Monocytes % 5.1 %; Neutrophils # 2.8 K/mcL (1.6-8.9); Platelet Count 155 K/mcL (140-400); Red Blood Count 5.57 M/mcL (3.82-4.97); Red Cell Distribution Width 12.1 % (11.5-14.5); White Blood Count 4.5 K/mcL (4.3-11.1)
[2018-12-07 11:45] LABS: Hemoglobin 15.8 g/dL (11.5-15.4)
[2018-12-07 12:00] LABS: Alanine Aminotransferase 135 Units/L (7-52); Albumin 3.8 g/dL (3.5-5.7); Albumin/Globulin Ratio 1.2 (1.1-2.2); Alkaline Phosphatase 206 Units/L (34-104); Aspartate Amino Transferase 99 Units/L (13-39); BUN/Creatinine Ratio 11 (6-26); Bilirubin,Direct 0.3 mg/dL (0.0-0.2); Bilirubin,Indirect 0.5 mg/dL (0.0-1.2); Bilirubin,Total 0.8 mg/dL (0.3-1.0); Blood Urea Nitrogen 12 mg/dL (6-20); Calcium 9.4 mg/dL (8.6-10.3); Carbon Dioxide 28 mEq/L (23-29); Chloride 97 mEq/L (98-107); Globulin 3.2 g/dL (2.4-3.5); Glucose 490 mg/dL (70-105); Lipase 57 Units/L (11-82); Osmolality,Calculated 300 (280-300); Potassium 4.2 mEq/L (3.5-5.1); Sodium 134 mEq/L (136-145); Troponin I < 0.03 ng/mL (< 0.04); eGFR For African Americans > 60 (> 60); eGFR For Non-African Americans 52 (> 60)
[2018-12-07] MEDS ORDERED: Insulin Human Regular 10 UNIT in 0.9 % Sodium Chloride 10 ML IV ONE (12:30)
[2018-12-07] MEDS ORDERED: Ondansetron 4 MG/2 ML VIAL IVP PRN (16:20)
[2018-12-07] MEDS ORDERED: Naloxone 0.4 MG/ML INJ IVP PRN (16:20)
[2018-12-07] MEDS ORDERED: Dextrose Gel 15 GM/37.5 ML TUBE PO PRN ×2 (16:26)
[2018-12-07] MEDS ORDERED: *HR* Dextrose 50 % in Water (Syg) 50 ML SYRINGE IVP PRN (16:26)
[2018-12-07] MEDS ORDERED: D5% in Water 1,000 ML IVC PRN (16:26)
--- NOTE | 2018-12-07 16:40 | Internal Med History&Physical ---
Date of Encounter: 12/07/18 Time of Encounter: 16:00 Internal Medicine - H&P: HPI Chief complaint: Intractacble nasuea and vomiting Admitted From: Emergency Dept Plans for Post Hospital Care: Home History of present illness: Ms. Plunkett is a 53 year old female with a past medical history significant for diabetes mellitus, rosacea, chronic pain, and to the hospital because of intractable nausea and vomiting. Patient mentions that nausea and vomiting started on Wednesday, progressively worsened. She came to the emergency department on Wednesday, had a CT scan of the abdomen done did not show any acute abnormalities and was discharged with the diagnosis of gastritis. Her symptoms continued on Wednesday when she came again to the emergency department but was again discharged. Today, she went to her PCP, she was still having intractable nausea and vomiting and she was referred to the emergency department. She is having almost 14-16 episodes everyday. She also noticed bright red blood today without vomiting. Denies any melena or dairrhea. Denies any previous episode of intractable nausea and vomiting. She is also having severe epigastric pain since the start of nausea and vomiting, constant, aggravated with vomiting and full, no relieving factors. Denies fever, chills, rigors. She has a history of rosacea, for which she had been taking a topical ointment and doxycycline oral for past 2 months. In the ED, patient was hemodynamically stable. CT scan of the abdomen showed no acute intra-abdominal process but likely infiltrated fatty infiltration of the liver. Lab work also showed elevated blood glucose levels, AST of 99, ALT of 125, ALK of 206. Patient was admitted for further management. Past Med Surg Social Fam HX - Past Medical History Medical history: cancer, diabetes, renal disease, other Additional medical history: cervical CA Psychiatric history: no psych history - Past Surgical History Surgical History: cholecystectomy, hysterectomy, other Additional surgical history: L-kidney removed, Lymph node removed from L-side of neck. - Social History Smoking Status: Never smoker Smokeless Tobacco Status: No Alcohol use: occasionally Drug use: none - Family History Father Living Status: Still Living Hx Family Endocrine Disorder: Yes (DM) Mother Living Status: Hx Family Respiratory Disorders: Yes (COPD, emphysema) Hx Family Cancer: Yes (Melanoma) Hx Family Endocrine Disorder: Yes (DM) Internal Medicine - H&P: Meds Albuterol Sulfate [Proair Hfa] 2 puff IH Q4H PRN 12/23/17 [History] Oxycodone HCl [Oxaydo] 5 mg PO TID PRN 12/23/17 [History] Ash Child U-100 20 units SQ BID 12/03/18 [History] Doxycycline 100 mg PO BID 12/07/18 [History] Allergy/AdvReac Type Severity Reaction Status Date / Time hydromorphone [From Dilaudid] Allergy See Verified 12/04/18 10:20 Comments Penicillins Allergy See Verified 12/04/18 10:20 Comments sulfamethoxazole Allergy See Verified 12/04/18 10:20 [From Bactrim] Comments trimethoprim [From Bactrim] Allergy See Verified 12/04/18 10:20 Comments All Systems PM: A 10-system review of systems was performed and is negative for pertinent findings except as documented above in the HPI. Review of systems: General: Negative for fever, chills, rigors. HEENT: Negative for neck swelling, discharge from nose, discharge from ears. EYES: Negative for any discharge from the eyes. Respiratory: Negative for shortness of breath, orthopnea, exertional dyspnea. Cardiovascular: Negative for chest pain, shortness of breath, orthopnea, PND. Gastrintestical: See HPI Genitourinary: Negative for dysuria, hematuria, nocturia, increased frequency of urine. Hematological: Negative for blood loss, negative for active cancer. Neurological: Negative for headache, dizziness, blurry vision, loss os power and sensations. Endocrinology: Negative for constipation, polyuria, polydipsia. Integumentary: Negative for rash, wounds, ulcers. Psychiatric: Negative for anxiety or depression. - Constitutional Vitals: Temp Pulse Resp BP Pulse Ox 97.8 F 75 14 114/58 97 12/07/18 10:30 12/07/18 15:20 12/07/18 15:20 12/07/18 15:20 12/07/18 15:20 Exam: General: Alert and oriented, no physical distress, able to follow commands. HEENT: No thyromegaly, no lymphadenopathy, no discharge. Eyes: No discharge. Normal conjuctiva, no icterus Respiratory: Normal vesicular breathing, no added sounds, breathing equal in both sides. CVS: Normal heart sounds, no murmurs, regular rhthm, no edema Extremities: No peripheral edema, peripheral pulses intact. Lymph nodes: No lymphadenopathy Gastrointestinal: Soft, mild tenderness in the epigastric area, normal abdominal sounds. No distention noted. Genitourinary: No paravertebral tenderness. Skin: No rash, ulcers or wound. Neurological: Alert and oriented. No focal deficits. Cranial nerves II-XII intact. Internal Med - H&P Results - Labs CBC & Chem 7: 12/07/18 11:16 12/07/18 11:16 Labs: Short CBC 12/07/18 Range/Units 11:16 WBC 4.5 (4.3-11.1) K/mcL Hgb 15.8 H D (11.5-15.4) g/dL Hct 46.2 H (35.3-44.9) % Plt Count 155 (140-400) K/mcL Neutrophils # 2.8 (1.6-8.9) K/mcL BMP 12/07/18 11:16 Sodium 134 L Potassium 4.2 Chloride 97 L Carbon Dioxide 28 BUN 12 Creatinine 1.10 Glucose 490 H Calcium 9.4 Cardiac Enzymes 12/07/18 Range/Units 11:16 Troponin I < 0.03 (< 0.04) ng/mL Liver Function 12/07/18 Range/Units 11:16 Total Bilirubin 0.8 (0.3-1.0) mg/dL Direct Bilirubin 0.3 H (0.0-0.2) mg/dL AST 99 H (13-39) Units/L ALT 135 H (7-52) Units/L Alkaline Phosphatase 206 H (34-104) Units/L Albumin 3.8 (3.5-5.7) g/dL - Impressions ITS Impressions Abdomen/Pelvis CT 12/07/18 14:17 IMPRESSION: No CT evidence of acute intra-abdominal process. Diffuse heterogeneity of the liver with overall low attenuation compared to the spleen. Findings may represent infiltrative fatty infiltration with other etiologies not excluded. Recommend nonemergent MRI with liver protocol for further evaluation. D/ / Cory Castorena / Cory Castorena Interpreting Provider: Cory Castorena - Assessment and Plan (1) Intractable nausea and vomiting Current Visit: Yes Status: Acute Assessment and plan: Etiology unclear. No previous history of gastric ulcer. We will be related to esophagitis in context of doxycycline use. Possibility of gastritis cannot be ruled out. Start the patient on clear liquid diet. IV fluids. Nothing by mouth after midnight. IV protonix ZOfran fir the nausea GI consult has been placed. Discussed with the GI, endoscopy tomorrow. Qualifiers: Vomiting type: unspecified Qualified Code(s): R11.2 - Nausea with vomiting, unspecified (2) Transaminitis Current Visit: Yes Status: Acute Assessment and plan: Etiology unclear. Likely in context of severe dehydration and nausea and vomiting. As the LFTs are progressively worsening, possibility of hepatitis cannot be ruled out. CT scan of the abdomen negative for any gross liver abnormalities. We will obtain viral serology. Continue to monitor. In case of worsening, obtain ultrasound of the liver. (3) Abdominal pain Current Visit: Yes Status: Acute Assessment and plan: Likely in context of esophagitis or gastritis. Continue to monitor. Qualifiers: Abdominal location: generalized Qualified Code(s): R10.84 - Generalized abdominal pain (4) DVT prophylaxis Current Visit: No Status: Acute Assessment and plan: Subcutaneous heparin (5) Epigastric pain Current Visit: No Status: Acute Assessment and plan: Related to esophagitis. Continue to monitor (6) CKD (chronic kidney disease) stage 3, GFR 30-59 ml/min Current Visit: No Status: Chronic Assessment and plan: Kidney function currently stable. Continue to monitor (7) Diabetes type 2, uncontrolled Current Visit: No Status: Chronic Assessment and plan: History of diabetes mellitus type 2. Hemoglobin A1c of 11 in July. Currently on Lantus 20 units twice a day. She was given 10 units of insulin in the emergency department because her blood glucose of 490. Considering the patient oral intake is poor, start the patient on insulin detemir 10 units twice a day along with low-dose sliding scale. Continue to monitor. Qualifiers: Glycemic state: with hyperglycemia Qualified Code(s): E11.65 - Type 2 diabetes mellitus with hyperglycemia - Time Spent With Patient Total time spent is greater than 50% in coordination of care (as documented) at patient's floor/unit and/or counseling patient:
[2018-12-07] MEDS: Ringers Solution, Lactated 1,000 ML IVC SCH (17:12)
[2018-12-07] MEDS: Insulin LISPRO 300 UNITS/3 ML VIAL SQ SCH ×2 (18:16→21:50)
[2018-12-07] MEDS: Pantoprazole 40 MG VIAL IVP SCH (18:16)
[2018-12-07] MEDS: *HR* Heparin 5,000 UNIT/ML VIAL SQ SCH (18:16)
[2018-12-07 18:27] LABS: Hepatitis B Surface Antibody 666.53 mIU/mL
[2018-12-07 18:36] LABS: Hepatitis B Surface Antigen Nonreactive (Nonreactive)
[2018-12-07 19:06] LABS: Hepatitis A Antibody IgM Nonreactive (Nonreactive); Hepatitis C Virus Antibody Nonreactive (Nonreactive)
[2018-12-07] MEDS: Insulin DETEMIR 100 UNIT/ML X5UNITS SQ SCH (21:49)
[2018-12-08] MEDS: *HR* Heparin 5,000 UNIT/ML VIAL SQ SCH ×2 (05:25→18:33)
[2018-12-08] MEDS: Pantoprazole 40 MG VIAL IVP SCH ×2 (05:25→18:34)
[2018-12-08] MEDS: Ringers Solution, Lactated 1,000 ML IVC SCH (05:26)
[2018-12-08 07:56] LABS: Basophils % 0.7 %; Eosinophils # 0.2 K/mcL (0.0-0.6); Eosinophils % 5.3 %; Hematocrit 40.9 % (35.3-44.9); Immature Granulocytes % 0.2 % (0-4); Lymphocytes # 1.6 K/mcL (0.6-4.6); Lymphocytes % 36.3 %; Mean Corpuscular Hemoglobin 27.7 pg (28.0-33.3); Mean Platelet Volume 10.8 fL (9.4-12.4); Monocytes # 0.3 K/mcL (0.0-1.3); Monocytes % 6.2 %; Neutrophils # 2.2 K/mcL (1.6-8.9); Platelet Count 114 K/mcL (140-400); Red Blood Count 4.87 M/mcL (3.82-4.97); Red Cell Distribution Width 12.4 % (11.5-14.5); Segmented Neutrophils % 51.3 %; White Blood Count 4.4 K/mcL (4.3-11.1)
[2018-12-08 07:58] LABS: BUN/Creatinine Ratio 9 (6-26); Blood Urea Nitrogen 9 mg/dL (6-20); Calcium 8.5 mg/dL (8.6-10.3); Carbon Dioxide 25 mEq/L (23-29); Chloride 105 mEq/L (98-107); Glucose 260 mg/dL (70-105); Magnesium 1.7 mg/dL (1.6-2.6); Osmolality,Calculated 290 (280-300); Potassium 4.2 mEq/L (3.5-5.1); Sodium 136 mEq/L (136-145); eGFR For African Americans > 60 (> 60); eGFR For Non-African Americans 60 (> 60)
[2018-12-08 07:59] LABS: Hemoglobin 13.5 g/dL (11.5-15.4)
[2018-12-08 08:00] LABS: Albumin 3.2 g/dL (3.5-5.7); Albumin/Globulin Ratio 1.2 (1.1-2.2); Bilirubin,Direct 0.2 mg/dL (0.0-0.2); Bilirubin,Indirect 0.5 mg/dL (0.0-1.2); Bilirubin,Total 0.7 mg/dL (0.3-1.0); Globulin 2.6 g/dL (2.4-3.5); Total Protein 5.8 g/dL (6.4-8.9)
--- NOTE | 2018-12-08 08:35 | Gastroenterology Consult Note ---
<Samuel Levya - Last Filed: 12/08/18 15:58> Date of Encounter: 12/08/18 Time of Encounter: 08:35 - Assessment and plan (1) Intractable nausea and vomiting Current Visit: Yes Status: Acute Assessment and plan: Presented to the ED on 12/03/18 subsequent to presented on 12/04/28 complaining of nausea and emesis Return to the ED on 12/07/18 with ongoing emesis as well as development of streaky blood in emesis Reports 10-14 episodes of vomiting daily unable to intake solids or liquids Denies any dysphasia or odynophagia Complaining of severe epigastric pain which has worsened in the past 2 weeks Had 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 Dumont Qualifiers: Vomiting type: unspecified Qualified Code(s): R11.2 - Nausea with vomiting, unspecified (2) Elevated LFTs Current Visit: No Status: Acute Assessment and plan: Elevated LFTs AST at presentation 99, ALT 135 alkaline phosphatase [address] of the abdomen showed heterogeneous liver with nodular liver contour concerning for fatty liver Likely secondary to fatty liver from uncontrolled diabetes We will check JASON and anti-smooth muscle antibody to rule out autoimmune cause (3) Abdominal pain Current Visit: Yes Status: Acute Assessment and plan: Diffuse abdominal pain or significant epigastric region likely secondary to gastritis versus ulcer Pain could be secondary to severe gastritis versus gastroparesis CT of the abdomen did not show any perforation Continue Protonix and pain management Qualifiers: Abdominal location: generalized Qualified Code(s): R10.84 - Generalized abdominal pain - Time Spent With Patient Total time spent is greater than 50% in coordination of care (as documented) at patient's floor/unit and/or counseling patient: GI History of Present Illness - Data of Consult Requesting Physician: Shaye Chadwick - Consult Narrative History of present illness: Ms. Plunkett is a 53 year old female with past history of diabetes, renal disease with left kidney absent who presented to the ER on complaining of intractable vomiting since 12/03/18. Reports on 9/14/19. She started having nausea and emesis strict her blood sugar and reported it was in 350s. Denies eating anything unusual reports eating cereal for breakfast that morning. States that she presented to the ED that day and was subsequently discharged. Continue to have nausea and vomiting returned to the ED on Wednesday and was subsequently discharged. Reports continued and had increased to 10-14 episodes a day and on Wednesday she noticed streaking of blood in her emesis concerning her. States that she is unable to keep any liquids or solids down to 2 significant nausea and emesis as well as severe epigastric pain. Reports heartburn is so severe that it radiates to her back. States that she has had GERD for quite some time but the past 2 weeks her symptoms have worsened. In the ER she had a CT of the abdomen which did not show any acute abnormalities but did show fatty infiltration of the liver. At presentation her sodium was 134 did not have an anion gap although her glucose her glucose was 490. She is also complaining of diffuse right lower and left lower abdominal pain. Denying any hematochezia or melena or changes in her bowel movements. Reports only new changes include daily doxycycline twice a day for the past 2 months for rosacea. She had a viral hepatitis panel which was negative for hep A, hep B and hep C. She is denying any shortness of breath, chest pain, fever, chills, dysphagia or odynophagia. Past Med Surg Social Fam HX - Past Medical History Medical history: cancer, diabetes, renal disease, other Additional medical history: cervical CA Psychiatric history: no psych history - Past Surgical History Surgical History: cholecystectomy, hysterectomy, other Additional surgical history: L-kidney removed, Lymph node removed from L-side of neck. - Social History Smoking Status: Never smoker Smokeless Tobacco Status: No Alcohol use: occasionally Drug use: none - Family History Father Living Status: Still Living Hx Family Endocrine Disorder: Yes (DM) Mother Living Status: Hx Family Respiratory Disorders: Yes (COPD, emphysema) Hx Family Cancer: Yes (Melanoma) Hx Family Endocrine Disorder: Yes (DM) - Gastrointestinal Gastrointestinal: Present: abdominal pain (worse in epigastric region ), nausea, vomiting. Absent: diarrhea, melena - Constitutional Constitutional: no fever(s), no weight loss - EENT Nose, mouth and throat: Absent: dysphagia, hoarseness, sore throat - Cardiovascular Cardiovascular ROS: Absent: chest pain, palpitations - Respiratory Respiratory IM: Absent: dyspnea, hemoptysis, wheezing - Neurological ROS Neurological GI: Absent: headache(s), weakness - Hematologic/Lymphatic Hematologic/Lymphatic pediatric: Absent: easy bleeding - Musculoskeletal Musculoskeletal ROS GI: Present: back pain (radiation from epigastric region ) - Integumentary Integumentary GI: Absent: pruritis, rash - Constitutional Vitals: Temp Pulse Resp BP Pulse Ox 98.1 F 70 15 119/81 96 12/08/18 07:23 12/08/18 07:23 12/08/18 07:23 12/08/18 07:23 12/08/18 07:23 - Head Head exam: Present: atraumatic, normal inspection - Eye Eye exam: Present: EOMI, sclera anicteric. Absent: conjunctival injection - ENT ENT exam: Present: mucous membranes moist, normal oropharynx - Neck Neck exam general surgery: Present: full ROM, trachea midline - Respiratory Respiratory exam: Present: CTAB. Absent: rhonchi, wheezes - Cardiovascular Cardiovascular exam: Present: RRR, +S1, +S2 - GI/Abdominal GI/Abdominal exam: Present: normal bowel sounds, soft, tenderness (epigastric region ). Absent: distended - Extremities Exam Extremities exam: Present: warm. Absent: pedal edema, tenderness - Psychiatric Psychiatric exam: Present: normal affect, normal mood - Skin Skin exam: Present: dry, intact Results - Labs CBC & Chem 7: 12/08/18 06:59 12/08/18 06:59 Labs: Last Result 12/08/18 06:59 Calcium 8.5 L Entire Visit 12/08/18 12/08/18 06:59 06:59 Hgb 13.5 D Hct 40.9 Total Bilirubin 0.7 AST 77 H ALT 107 H - Impressions Impressions Abdomen/Pelvis CT 12/07/18 14:17 IMPRESSION: No CT evidence of acute intra-abdominal process. Diffuse heterogeneity of the liver with overall low attenuation compared to the spleen. Findings may represent infiltrative fatty infiltration with other etiologies not excluded. Recommend nonemergent MRI with liver protocol for further evaluation. D/ / Cory Castorena / Cory Castorena Interpreting Provider: Cory Castorena Consult Discharge Plan - Plan Referrals: Ethan Pratt MD [Primary Care Provider] - <Juarez Dumont - Last Filed: 12/08/18 17:37> Date of Encounter: 12/08/18 Time of Encounter: 14:00 - Time Spent With Patient Total time spent is greater than 50% in coordination of care (as documented) at patient's floor/unit and/or counseling patient: GI History of Present Illness - Data of Consult Requesting Physician: Shaye Chadwick - Consult Narrative History of present illness: Ms. Plunkett is a 53 year old female - Constitutional Vitals: Temp Pulse Resp BP Pulse Ox 98.3 F 105 18 143/65 100 12/08/18 16:48 12/08/18 17:33 12/08/18 17:33 12/08/18 17:33 12/08/18 17:33 Results - Labs CBC & Chem 7: 12/08/18 06:59 12/08/18 06:59 Labs: Last Result 12/08/18 06:59 Calcium 8.5 L Entire Visit 12/08/18 12/08/18 06:59 06:59 Hgb 13.5 D Hct 40.9 Total Bilirubin 0.7 AST 77 H ALT 107 H - Attending Attestation I examined this patient and my medical decision-making was reviewed with the Resident Physician. I agree with the documented findings, disposition and treatment plan as described except to the extent set forth below. Patient seen complaining of epigastric pain also have the vomiting with some mild hematemesis on examination: Epigastric tenderness assessment: Patient with elevated LFTs with the imaging showing vaginally delivered. Finding are concerning for cirrhosis. #2 hematemesis and epigastric pain. Recommendation: Workup for cirrhosis. EGD
[2018-12-08] MEDS: Insulin DETEMIR 100 UNIT/ML X5UNITS SQ SCH ×2 (09:12→21:00)
[2018-12-08] MEDS: Insulin LISPRO 300 UNITS/3 ML VIAL SQ SCH ×4 (09:13→20:55)
--- NOTE | 2018-12-08 11:25 | Internal Med Progress Note ---
Hospitalist Progress Note - Encounter Date of Encounter: 12/08/18 Time of Encounter: 09:20 - Subjective Interval History: Seen at bedside. Is curently NPO for the procedure. Deneis fever, chills. reports improvement in the nausea, was able to keep clear liquids yesterday. Still has epigastirc pain. Abdominal pain has improved. No other overnight events. - Exam Vitals: Temp Pulse Resp BP Pulse Ox 98.2 F 57 14 119/81 97 12/08/18 11:00 12/08/18 11:00 12/08/18 11:00 12/08/18 07:23 12/08/18 11:00 Exam: General: Alert and oriented, no physical distress, able to follow commands. HEENT: No thyromegaly, no lymphadenopathy, no discharge. Respiratory: Normal vesicular breathing, no added sounds, breathing equal in both sides. CVS: Normal heart sounds, no murmurs, regular rhthm, no edema Extremities: No peripheral edema, peripheral pulses intact. Gastrointestinal: Soft, mild tenderness in the epigastric area, normal abdominal sounds. No distention noted. Genitourinary: No paravertebral tenderness. Skin: No rash, ulcers or wound. Neurological: Alert and oriented. No focal deficits. Cranial nerves II-XII intact. - Assessment and Plan (1) Intractable nausea and vomiting Current Visit: Yes Status: Acute Assessment and Plan: Improving No previous history of gastric ulcer. 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 Possibility of gastritis cannot be ruled out. Was able to toelrate clear liquid diet yesterday Plan for the endoscopy today IV protonix ZOfran fir the nausea (2) Transaminitis Current Visit: Yes Status: Acute Assessment and Plan: Improving. Etiology unclear. Likely in context of severe dehydration and nausea and vomiting. Viral serology negative JASON and ASMA ordered bu the GI (3) Abdominal pain Current Visit: Yes Status: Acute Assessment and Plan: Likely in context of esophagitis or gastritis. Continue to monitor. (4) DVT prophylaxis Current Visit: No Status: Acute Assessment and Plan: Subcutaneous heparin (5) Epigastric pain Current Visit: No Status: Acute Assessment and Plan: Related to esophagitis. Continue to monitor (6) CKD (chronic kidney disease) stage 3, GFR 30-59 ml/min Current Visit: No Status: Chronic Assessment and Plan: Kidney function currently stable. Continue to monitor (7) Diabetes type 2, uncontrolled Current Visit: No Status: Chronic Assessment and Plan: History of diabetes mellitus type 2. Hemoglobin A1c of 11 in July. Blood glucose levels continue to be high Continue detemir 10 U BID with LDSS - Time Spent with Patient Total time spent is greater than 50% in coordination of care (as documented) at patient's floor/unit and/or counseling patient: Internal Medicine: Result - Labs CBC & Chem 7: 12/08/18 06:59 12/08/18 06:59 Labs: Short CBC 12/07/18 12/08/18 Range/Units 11:16 06:59 WBC 4.5 4.4 (4.3-11.1) K/mcL Hgb 15.8 H D 13.5 D (11.5-15.4) g/dL Hct 46.2 H 40.9 (35.3-44.9) % Plt Count 155 114 L (140-400) K/mcL Neutrophils # 2.8 2.2 (1.6-8.9) K/mcL BMP 12/07/18 12/08/18 11:16 06:59 Sodium 134 L 136 Potassium 4.2 4.2 Chloride 97 L 105 Carbon Dioxide 28 25 BUN 12 9 Creatinine 1.10 0.98 Glucose 490 H 260 H Calcium 9.4 8.5 L Cardiac Enzymes 12/07/18 Range/Units 11:16 Troponin I < 0.03 (< 0.04) ng/mL Liver Function 12/07/18 12/08/18 Range/Units 11:16 06:59 Total Bilirubin 0.8 0.7 (0.3-1.0) mg/dL Direct Bilirubin 0.3 H 0.2 (0.0-0.2) mg/dL AST 99 H 77 H (13-39) Units/L ALT 135 H 107 H (7-52) Units/L Alkaline Phosphatase 206 H 164 H (34-104) Units/L Albumin 3.8 3.2 L (3.5-5.7) g/dL - Impressions Impressions Abdomen/Pelvis CT 12/07/18 14:17 IMPRESSION: No CT evidence of acute intra-abdominal process. Diffuse heterogeneity of the liver with overall low attenuation compared to the spleen. Findings may represent infiltrative fatty infiltration with other etiologies not excluded. Recommend nonemergent MRI with liver protocol for further evaluation. D/ / Cory Castorena / Cory Castorena Interpreting Provider: Cory Castorena Consult Discharge Plan - Plan Referrals: Ethan Pratt MD [Primary Care Provider] - (1) Intractable nausea and vomiting Qualifiers: Vomiting type: unspecified Qualified Code(s): R11.2 - Nausea with vomiting, unspecified (3) Abdominal pain Qualifiers: Abdominal location: generalized Qualified Code(s): R10.84 - Generalized abdominal pain (7) Diabetes type 2, uncontrolled Qualifiers: Glycemic state: with hyperglycemia Qualified Code(s): E11.65 - Type 2 diabetes mellitus with hyperglycemia
[2018-12-08] MEDS ORDERED: *HR* Midazolam HCl 5 MG/5 ML VIAL IVP ONE ×2 (16:33→17:34)
[2018-12-08] MEDS ORDERED: *HR* FentaNYL (PF) 100 MCG/2 ML VIAL ONE (16:33)
[2018-12-08] MEDS ORDERED: *HR* FentaNYL (PF) 100 MCG/2 ML VIAL IVP ONE (17:34)
[2018-12-08] MEDS ORDERED: Tetracaine/Benzocaine/Butamben 1 SPRAY AEROSOL MM ONE (17:34)
--- NOTE | 2018-12-08 17:36 | Pre-Sedation Evaluation ---
Pre-sedation evaluation - Pre-sedation checklist Date of procedure: 12/08/18 Procedure: egd Recent Vitals: Last Vital Signs Temp 98.3 F 12/08/18 16:48 Pulse 105 12/08/18 17:33 Resp 18 12/08/18 17:33 BP 143/65 12/08/18 17:33 Pulse Ox 100 12/08/18 17:33 H&P (including ROS) documented in medical record: Yes Previous reaction to sedatives/anesthetics: No Dietary Status: NPO after Midnight Dentition: No loose teeth or bridges ASA Classification *see protocol: CLASS II-Mild systemic disease Plan of Care: Pt appropriate candidate for procedure/moderate/conscious sedation, Risks/benefits of procedure/sedation discussed w/ patient/family
[2018-12-08] MEDS: Sucralfate 1 GM TABLET PO SCH (18:33)
[2018-12-09 02:36] LABS: Basophils % 0.2 %; Eosinophils # 0.2 K/mcL (0.0-0.6); Eosinophils % 5.2 %; Hematocrit 41.1 % (35.3-44.9); Hemoglobin 13.8 g/dL (11.5-15.4); Immature Granulocytes % 0.5 % (0-4); Lymphocytes # 1.7 K/mcL (0.6-4.6); Lymphocytes % 38.6 %; Mean Corpuscular HGB Conc 33.6 g/dL (31.6-35.5); Mean Corpuscular Hemoglobin 29.1 pg (28.0-33.3); Mean Corpuscular Volume 86.5 fL (83.0-100.0); Mean Platelet Volume 9.9 fL (9.4-12.4); Monocytes # 0.2 K/mcL (0.0-1.3); Monocytes % 5.4 %; Neutrophils # 2.1 K/mcL (1.6-8.9); Platelet Count 162 K/mcL (140-400); Red Blood Count 4.75 M/mcL (3.82-4.97); Red Cell Distribution Width 12.3 % (11.5-14.5); Segmented Neutrophils % 50.1 %; White Blood Count 4.3 K/mcL (4.3-11.1)
[2018-12-09 02:57] LABS: Alanine Aminotransferase 87 Units/L (7-52); Albumin/Globulin Ratio 1.2 (1.1-2.2); Alkaline Phosphatase 150 Units/L (34-104); Aspartate Amino Transferase 57 Units/L (13-39); BUN/Creatinine Ratio 8 (6-26); Bilirubin,Total 0.6 mg/dL (0.3-1.0); Blood Urea Nitrogen 8 mg/dL (6-20); Calcium 8.4 mg/dL (8.6-10.3); Carbon Dioxide 26 mEq/L (23-29); Chloride 104 mEq/L (98-107); Globulin 2.6 g/dL (2.4-3.5); Glucose 201 mg/dL (70-105); Osmolality,Calculated 286 (280-300); Potassium 3.9 mEq/L (3.5-5.1); Sodium 136 mEq/L (136-145); Total Protein 5.6 g/dL (6.4-8.9); eGFR For African Americans > 60 (> 60); eGFR For Non-African Americans > 60 (> 60)
[2018-12-09] MEDS: *HR* Heparin 5,000 UNIT/ML VIAL SQ SCH (05:50)
[2018-12-09] MEDS: Pantoprazole 40 MG VIAL IVP SCH ×2 (05:51→18:08)
[2018-12-09] MEDS: Sucralfate 1 GM TABLET PO SCH ×2 (09:03→18:08)
[2018-12-09] MEDS: Insulin LISPRO 300 UNITS/3 ML VIAL SQ SCH ×2 (09:04→18:09)
[2018-12-09] MEDS: Insulin DETEMIR 100 UNIT/ML X5UNITS SQ SCH (09:08)
[2018-12-09 15:41] VITALS: BP 132/84
--- NOTE | 2018-12-09 16:43 | Internal Med Progress Note ---
Hospitalist Progress Note - Encounter Date of Encounter: 12/09/18 Time of Encounter: 10:45 - Subjective Interval History: Seen at bedside, feeling better than yesterday, but still complaiinig of the pain in the epigastric region although improved as compared to yesterday. Denies nusea, vomiting, fever, chills. awaiting MRI - Exam Vitals: Temp Pulse Resp BP Pulse Ox 98.3 F 81 15 132/84 97 12/09/18 14:29 12/09/18 14:29 12/09/18 14:29 12/09/18 14:12/09/18 14:29 Exam: General: Alert and oriented, no physical distress, able to follow commands. HEENT: No thyromegaly, no lymphadenopathy, no discharge. Respiratory: Normal vesicular breathing, no added sounds, breathing equal in both sides. CVS: Normal heart sounds, no murmurs, regular rhthm, no edema Extremities: No peripheral edema, peripheral pulses intact. Gastrointestinal: Soft, mild tenderness in the epigastric area, normal abdominal sounds. No distention noted. Genitourinary: No paravertebral tenderness. Skin: No rash, ulcers or wound. Neurological: Alert and oriented. No focal deficits. Cranial nerves II-XII intact. - Assessment and Plan (1) Intractable nausea and vomiting Current Visit: Yes Status: Acute Assessment and Plan: Improving EGD 11/20/18 showed Grade A esophagitis, esophageal mucosal changes 2/2 Barretts esophagus, samples were collected. On diabetic diet now, tolerating well. IV protonix Carafate ZOfran fir the nausea (2) Transaminitis Current Visit: Yes Status: Acute Assessment and Plan: Improving. Etiology unclear. Likely in context of severe dehydration and nausea and vomiting. Viral serology negative JASON and ASMA ordered bu the GI MRI ordered bu the GI Continue to trend (3) Abdominal pain Current Visit: Yes Status: Acute Assessment and Plan: Likely in context of esophagitis Continue to monitor. (4) DVT prophylaxis Current Visit: No Status: Acute Assessment and Plan: Subcutaneous heparin (5) Epigastric pain Current Visit: No Status: Acute Assessment and Plan: Related to esophagitis. Continue to monitor (6) CKD (chronic kidney disease) stage 3, GFR 30-59 ml/min Current Visit: No Status: Chronic Assessment and Plan: Kidney function currently stable. Continue to monitor (7) Diabetes type 2, uncontrolled Current Visit: No Status: Chronic Assessment and Plan: History of diabetes mellitus type 2. Hemoglobin A1c of 11 in July. Blood glucose levels continue to be high Increase detemir 15 U BID and insulin lisrpo 4 units with meals with LDSS - Time Spent with Patient Total time spent is greater than 50% in coordination of care (as documented) at patient's floor/unit and/or counseling patient: Internal Medicine: Result - Labs CBC & Chem 7: 12/09/18 02:10 12/09/18 02:10 Labs: Short CBC 12/09/18 Range/Units 02:10 WBC 4.3 (4.3-11.1) K/mcL Hgb 13.8 (11.5-15.4) g/dL Hct 41.1 (35.3-44.9) % Plt Count 162 (140-400) K/mcL Neutrophils # 2.1 (1.6-8.9) K/mcL BMP 12/09/18 02:10 Sodium 136 Potassium 3.9 Chloride 104 Carbon Dioxide 26 BUN 8 Creatinine 0.97 Glucose 201 H Calcium 8.4 L Liver Function 12/09/18 Range/Units 02:10 Total Bilirubin 0.6 (0.3-1.0) mg/dL AST 57 H (13-39) Units/L ALT 87 H (7-52) Units/L Alkaline Phosphatase 150 H (34-104) Units/L Albumin 3.0 L (3.5-5.7) g/dL Consult Discharge Plan - Plan Referrals: Ethan Pratt MD [Primary Care Provider] - Prescriptions: Sucralfate [Carafate] 1 gm PO BID 14 Days #28 tablet Transmission Status: Received by [facility]/pharmacy #[id number] Omeprazole [PriLOSEC] 40 mg PO DAILY 30 Days #30 cap Transmission Status: Received by [facility]/pharmacy #[id number] (1) Intractable nausea and vomiting Qualifiers: Vomiting type: unspecified Qualified Code(s): R11.2 - Nausea with vomiting, unspecified (3) Abdominal pain Qualifiers: Abdominal location: generalized Qualified Code(s): R10.84 - Generalized a bdominal pain (7) Diabetes type 2, uncontrolled Qualifiers: Glycemic state: with hyperglycemia Qualified Code(s): E11.65 - Type 2 diabetes mellitus with hyperglycemia
--- NOTE | 2018-12-09 17:58 | Discharge Summary ---
- NOTES TO OUTPATIENT PROVIDER Notes to Outpatient Provider: Presented because of the intractable nausea and vomiting. Endoscopy showed grade A reflux esophagitis and Escamilla's esophagus. MRI showed cirrhosis and mild biliary duct dilatation. She has been discharged on Carafate and Protonix. Advised to follow up with professor of historical theology. Please follow up on liver function studies. These have been improving. Orders not resulted at time of discharge: Pending orders 12/08/18 11:17 JASON IgG CORINA rflx IFA Routine Smooth Muscle Antibody, IgG Routine 12/08/18 17:46 Surgical Pathology [PTH] Routine Date of Encounter: 12/09/18 Time of Encounter: 10:00 - Discharge Diagnosis (1) Intractable nausea and vomiting Priority: Primary Status: Acute Qualifiers: Vomiting type: unspecified Qualified Code(s): R11.2 - Nausea with vomiting, unspecified (2) Transaminitis Priority: Secondary Status: Acute (3) Abdominal pain Priority: Secondary Status: Acute Qualifiers: Abdominal location: generalized Qualified Code(s): R10.84 - Generalized abdominal pain (4) DVT prophylaxis Priority: Secondary Status: Acute (5) Epigastric pain Priority: Secondary Status: Acute (6) CKD (chronic kidney disease) stage 3, GFR 30-59 ml/min Priority: Secondary Status: Chronic (7) Diabetes type 2, uncontrolled Priority: Secondary Status: Chronic Qualifiers: Glycemic state: with hyperglycemia Qualified Code(s): E11.65 - Type 2 diabetes mellitus with hyperglycemia Hospital course: Ms. Plunkett is a 53 year old female with a past medical history significant for diabetes mellitus, rosacea, chronic pain, and to the hospital because of intractable nausea and vomiting. CT scan of the abdomen showed no acute intra- abdominal process but likely infiltrated fatty infiltration of the liver. Laboratory workup showed transaminitis. Patient got endoscopy in the hospital which showed Grade A esophagitis, esophageal mucosal changes 2/2 Barretts esophagus, samples were collected. She was prescribed Carafate and Protonix for 1 month. Her liver function gradually improved. Hepatitis viral panel was negative. She also got MRI because of her transaminitis which showed mild bilateral duct dilatation and changes concerning for liver cirrhosis. She is advised to follow-up with the professor of historical theology as an outpatient. She will also be given prescription to repeat LFTs on Wednesday. Advised to follow up with the PCP next week to follow up on LFTs. Patient was taking doxycycline for rosaea which has been stopped considering the patient esophagitis. Of note, patient nausea and vomiting stopped on first day of admission and she has been tolerating the diet well. She is being discharged today in stable condition. - Time Spent with Patient Total time spent providing and/or coordinating discharge services: 45 minutes - Discharge Medications Prescriptions: New Sucralfate [Carafate] 1 gm PO BID 14 Days #28 tablet Omeprazole [PriLOSEC] 40 mg PO DAILY 30 Days #30 cap Continued Albuterol Sulfate [Proair Hfa] 2 puff IH Q4H PRN PRN Reason: Dyspnea Insulin Glargine,Hum.rec.anlog [Basaglar Kwikpen U-100] 20 unit SQ BID Oxycodone HCl [Roxybond] 5 mg PO Q8H PRN PRN Reason: Pain Discontinued Doxycycline 100 mg PO BID Home Medications: Albuterol Sulfate [Proair Hfa] 2 puff IH Q4H PRN 12/23/17 [History] Insulin Glargine,Hum.rec.anlog [Basaglar Kwikpen U-100] 20 unit SQ BID 12/07/18 [History] Oxycodone HCl [Roxybond] 5 mg PO Q8H PRN 12/07/18 [History] Omeprazole [PriLOSEC] 40 mg PO DAILY 30 Days #30 cap 12/08/18 [Rx] Sucralfate [Carafate] 1 gm PO BID 14 Days #28 tablet 12/08/18 [Rx] Allergies/Adverse Reactions: Allergy/AdvReac Type Severity Reaction Status Date / Time hydromorphone [From Dilaudid] Allergy See Verified 12/04/18 10:20 Comments Penicillins Allergy See Verified 12/04/18 10:20 Comments sulfamethoxazole Allergy See Verified 12/04/18 10:20 [From Bactrim] Comments trimethoprim [From Bactrim] Allergy See Verified 12/04/18 10:20 Comments Date of admission: 12/07/18 15:07 Primary care physician: Ethan Pratt MD Consults: 12/07/18 11:04 PICC Consult [Consult to Invasive Line Access Team] [CONS] Stat Reason for Consult: UNABLE TO OBTAIN IV ACCESS Line Type: EPIV 09/18/19 13:02 Consult to Invasive Line Access Team [CONS] Routine Reason for Consult: poor access Line Type: EPIV 12/07/18 16:24 Consult to Gastroenterology [CONS] Routine Consulting Provider: Kal Ramirez Reason for Consult: Intractable nasuea and vomiting, blood in vomiting. Concerns for esophagitis , may need scope Call Completed: Yes - Constitutional Vitals: Temp Pulse Resp BP Pulse Ox 98.3 F 81 15 132/84 97 12/09/18 14:29 12/09/18 14:29 12/09/18 14:29 12/09/18 14:12/09/18 14:29 Exam: General: Alert and oriented, no physical distress, able to follow commands. HEENT: No thyromegaly, no lymphadenopathy, no discharge. Respiratory: Normal vesicular breathing, no added sounds, breathing equal in both sides. CVS: Normal heart sounds, no murmurs, regular rhthm, no edema Extremities: No peripheral edema, peripheral pulses intact. Gastrointestinal: Soft, mild tenderness in the epigastric area, normal abdominal sounds. No distention noted. Genitourinary: No paravertebral tenderness. Skin: No rash, ulcers or wound. Neurological: Alert and oriented. No focal deficits. Cranial nerves II-XII intact. - Patient Status Disposition: Home, Self-Care Condition: Fair - Discharge Instructions Follow Up With: Ethan Pratt MD [Primary Care Provider] - Juarez Dumont MD [Partnered Physician] - - Diet and Activity Activity: increase activity as tolerated Diet: advance to your usual diet, diabetic diet
[2018-12-09] MEDS ORDERED: Insulin DETEMIR 100 UNIT/ML X5UNITS SQ SCH (21:00)
[2018-12-10] MEDS ORDERED: Insulin LISPRO 300 UNITS/3 ML VIAL SQ SCH (07:30)
[2018-12-10 10:36] LABS: ANA IgG by ELISA NONE DETECTED (None Detected); Smooth Muscle Ab Titer IgG 1:40 (<1:20)
== END 2018-12-09 18:36 | disposition home or self-care (01) ==
LOC: EMEROOARM 10:29 → 3ANU 10:29 → SUATTDRO 18:01
PROVIDERS: ADMIT Internal Medicine; ATTEND Internal Medicine
PROC: ENDOEBX (2018-12-08 14:20)

== ENCOUNTER 2020-01-05 06:27 | Observation (INO) ==
[2020-01-05] MEDS ORDERED: Metoclopramide 10 MG/2 ML VIAL IVP ONE (06:54)
[2020-01-05] MEDS ORDERED: 0.9 % Sodium Chloride 1,000 ML IVC ONE (06:54)
[2020-01-05 07:21] LABS: Basophils % 0.6 %; Eosinophils # 0.2 K/mcL (0.0-0.6); Eosinophils % 5.8 %; Hematocrit 39.3 % (35.3-44.9); Hemoglobin 13.1 g/dL (11.5-15.4); Immature Granulocytes % 0.6 % (0-4); Lymphocytes # 0.7 K/mcL (0.6-4.6); Lymphocytes % 20.2 %; Mean Corpuscular HGB Conc 33.3 g/dL (31.6-35.5); Mean Corpuscular Hemoglobin 27.8 pg (28.0-33.3); Mean Corpuscular Volume 83.4 fL (83.0-100.0); Mean Platelet Volume 9.2 fL (9.4-12.4); Monocytes # 0.5 K/mcL (0.0-1.3); Monocytes % 13.9 %; Neutrophils # 2.1 K/mcL (1.6-8.9); Platelet Count 139 K/mcL (140-400); Red Blood Count 4.71 M/mcL (3.82-4.97); Red Cell Distribution Width 12.3 % (11.5-14.5); Segmented Neutrophils % 58.9 %; White Blood Count 3.6 K/mcL (4.3-11.1)
[2020-01-05 07:29] LABS: INR 1.1; Prothrombin Time 12.6 Seconds (9.4-12.1)
[2020-01-05 07:31] LABS: Activated Partial Thrombo Time 28.5 Seconds (26.0-36.0)
[2020-01-05 07:41] LABS: Alanine Aminotransferase 38 Units/L (7-52); Albumin 3.6 g/dL (3.5-5.7); Albumin/Globulin Ratio 1.2 (1.1-2.2); Alkaline Phosphatase 133 Units/L (34-104); Aspartate Amino Transferase 44 Units/L (13-39); BUN/Creatinine Ratio 12 (6-26); Bilirubin,Direct 0.1 mg/dL (0.0-0.2); Bilirubin,Indirect 0.6 mg/dL (0.0-1.0); Bilirubin,Total 0.7 mg/dL (0.3-1.0); Blood Urea Nitrogen 12 mg/dL (6-20); Calcium 9.1 mg/dL (8.6-10.3); Carbon Dioxide 28 mEq/L (23-29); Chloride 102 mEq/L (98-107); Globulin 3.1 g/dL (2.4-3.5); Glucose 220 mg/dL (70-105); Magnesium 1.6 mg/dL (1.6-2.6); Osmolality,Calculated 287 (280-300); Phosphorous 2.8 mg/dL (2.7-4.5); Potassium 3.8 mEq/L (3.5-5.1); Sodium 135 mEq/L (136-145); Total Protein 6.7 g/dL (6.4-8.9); Troponin I < 0.03 ng/mL (< 0.04); eGFR For African Americans > 60 (> 60); eGFR For Non-African Americans 55 (> 60)
[2020-01-05 09:01] LABS: Bilirubin,Urine Negative (Negative); Blood,Urine Negative (Negative); Clarity,Urine Clear (Clear); Color,Urine Light-Yellow (Yellow); Glucose,Urine (UA) Normal (Normal); Ketones,Urine Negative (Negative); Leukocyte Esterase,Urine Negative (Negative); Nitrite,Urine Negative (Negative); Protein,Urine Negative (Neg-Trace); Specific Gravity,Urine 1.013 (1.010-1.025); Urobilinogen,Urine Normal (Normal)
[2020-01-05 09:14] LABS: Adenovirus Not Detected (Not Detect); Bordetella Pertussis Not Detected (Not Detect); Chlamydophila pneumoniae Not Detected (Not Detect); Coronavirus 229E Not Detected (Not Detect); Coronavirus HKU1 Not Detected (Not Detect); Coronavirus NL63 Not Detected (Not Detect); Coronavirus OC43 Not Detected (Not Detect); Human Metapneumovirus Not Detected (Not Detect); Human Rhinovirus/Enterovirus Not Detected (Not Detect); Influenza A Subtype 2009 H1 Not Detected (Not Detect); Influenza B Not Detected (Not Detect); Mycoplasma pneumoniae Not Detected (Not Detect); Parainfluenza Virus 1 Not Detected (Not Detect); Parainfluenza Virus 2 Not Detected (Not Detect); Parainfluenza Virus 3 Not Detected (Not Detect); Parainfluenza Virus 4 Not Detected (Not Detect); Respiratory Syncytial Virus Not Detected (Not Detect)
[2020-01-05 09:18] LABS: SARS-CoV-2 DETECTED (Not Detect)
[2020-01-05] MEDS ORDERED: Naloxone 0.4 MG/ML INJ IVP PRN (10:04)
[2020-01-05] MEDS ORDERED: D5% in Water 1,000 ML IVC PRN (10:09)
[2020-01-05] MEDS ORDERED: Dextrose Gel 15 GM/37.5 ML TUBE PO PRN ×2 (10:09)
[2020-01-05] MEDS ORDERED: *HR* Dextrose 50 % in Water (Vial) 50 ML VIAL IVP PRN (10:09)
[2020-01-05] MEDS: Insulin LISPRO 300 UNITS/3 ML VIAL SQ SCH ×2 (11:37→16:39)
[2020-01-05] MEDS ORDERED: Insulin DETEMIR 100 UNIT/ML X5UNITS SQ SCH (21:00)
[2020-01-05] MEDS: *HR* OxyCODONE Immed Rel 5 MG TABLET PO SCH (21:12)
[2020-01-06 04:18] VITALS: BP 122/73
[2020-01-06 05:50] LABS: BUN/Creatinine Ratio 13 (6-26); Blood Urea Nitrogen 13 mg/dL (6-20); Calcium 8.7 mg/dL (8.6-10.3); Carbon Dioxide 26 mEq/L (23-29); Chloride 102 mEq/L (98-107); Glucose 119 mg/dL (70-105); Lactate Dehydrogenase 160 Units/L (140-271); Magnesium 1.8 mg/dL (1.6-2.6); Osmolality,Calculated 285 (280-300); Phosphorous 3.9 mg/dL (2.7-4.5); Sodium 137 mEq/L (136-145); eGFR For African Americans > 60 (> 60); eGFR For Non-African Americans 55 (> 60)
[2020-01-06] MEDS: *HR* OxyCODONE Immed Rel 5 MG TABLET PO SCH (05:50)
[2020-01-06 06:00] LABS: Ferritin 287 ng/mL (10-120)
[2020-01-06] MEDS ORDERED: *HR* Enoxaparin 40 MG/0.4 ML SYRINGE SQ SCH (06:00)
[2020-01-06 06:47] LABS: White Blood Count 3.5 K/mcL (4.3-11.1)
[2020-01-06 06:48] LABS: Basophils % 0.9 %; Eosinophils # 0.3 K/mcL (0.0-0.6); Eosinophils % 8.9 %; Hematocrit 41.6 % (35.3-44.9); Hemoglobin 14.1 g/dL (11.5-15.4); Immature Granulocytes % 0.3 % (0-4); Lymphocytes # 1.3 K/mcL (0.6-4.6); Lymphocytes % 35.7 %; Mean Corpuscular HGB Conc 33.9 g/dL (31.6-35.5); Mean Corpuscular Hemoglobin 28.5 pg (28.0-33.3); Mean Corpuscular Volume 84.2 fL (83.0-100.0); Mean Platelet Volume 9.3 fL (9.4-12.4); Monocytes # 0.4 K/mcL (0.0-1.3); Monocytes % 11.7 %; Neutrophils # 1.5 K/mcL (1.6-8.9); Platelet Count 149 K/mcL (140-400); Red Blood Count 4.94 M/mcL (3.82-4.97); Red Cell Distribution Width 12.4 % (11.5-14.5); Segmented Neutrophils % 42.5 %
[2020-01-06] MEDS: Insulin LISPRO 300 UNITS/3 ML VIAL SQ SCH (08:15)
== END 2020-01-06 12:31 | disposition home or self-care (01) ==
LOC: 2NENU 06:27 → EMEROOARM 06:27 → SUATTDRO 10:14 → 2NENU 10:17
PROVIDERS: ADMIT Internal Medicine; ATTEND Internal Medicine

== ENCOUNTER 2020-06-23 10:07 | Inpatient (IN) ==
[2020-06-23] MEDS ORDERED: Isovue-370 500 ML BOTTLE IVP ONE (10:08)
[2020-06-23] MEDS ORDERED: 0.9 % Sodium Chloride 1,000 ML ONE (10:13)
[2020-06-23 10:29] LABS: Hematocrit 41.3 % (35.3-44.9); Hemoglobin 13.4 g/dL (11.5-15.4); Mean Corpuscular HGB Conc 32.4 g/dL (31.6-35.5); Mean Corpuscular Hemoglobin 27.8 pg (28.0-33.3); Mean Corpuscular Volume 85.7 fL (83.0-100.0); Mean Platelet Volume 8.8 fL (9.4-12.4); Platelet Count 160 K/mcL (140-400); Red Blood Count 4.82 M/mcL (3.82-4.97); Red Cell Distribution Width 12.8 % (11.5-14.5); White Blood Count 5.6 K/mcL (4.3-11.1)
[2020-06-23 10:37] LABS: Prothrombin Time 11.7 Seconds (9.4-12.1)
[2020-06-23 10:39] LABS: Activated Partial Thrombo Time 29.7 Seconds (26.0-36.0)
[2020-06-23 10:50] LABS: BUN/Creatinine Ratio 15 (6-26); Blood Urea Nitrogen 18 mg/dL (6-20); Carbon Dioxide 25 mEq/L (23-29); Chloride 104 mEq/L (98-107); Glucose 228 mg/dL (70-105); Osmolality,Calculated 291 (280-300); Potassium 4.1 mEq/L (3.5-5.1); Sodium 136 mEq/L (136-145); Troponin I < 0.03 ng/mL (< 0.04); eGFR For African Americans 58 (> 60); eGFR For Non-African Americans 48 (> 60)
[2020-06-23] MEDS ORDERED: Aspirin 81 MG TAB.CHEW PO ONE (11:05)
[2020-06-23] MEDS ORDERED: Ondansetron 4 MG/2 ML VIAL IVP PRN (11:25)
[2020-06-23] MEDS ORDERED: Naloxone 0.4 MG/ML INJ IVP PRN (11:25)
[2020-06-23] MEDS ORDERED: Perflutren Lipid Microsphere 1.3 ML in 0.9 % Sodium Chloride 8.7 ML IVP PRN (11:29)
[2020-06-23] MEDS ORDERED: *HR* Dextrose 50 % in Water (Vial) 50 ML VIAL IVP PRN (13:59)
[2020-06-23] MEDS ORDERED: Dextrose Gel 15 GM/37.5 ML TUBE PO PRN ×2 (13:59)
[2020-06-23] MEDS ORDERED: D5% in Water 1,000 ML IVC PRN (13:59)
[2020-06-23] MEDS ORDERED: *HR* OxyCODONE Immed Rel 5 MG TABLET PO SCH (16:00)
[2020-06-23] MEDS: Insulin LISPRO 300 UNITS/3 ML VIAL SUBQ SCH (16:33)
[2020-06-23] MEDS: *HR* OxyCODONE Immed Rel 5 MG TABLET PO SCH (17:39)
[2020-06-23] MEDS: Insulin DETEMIR 100 UNIT/ML X5UNITS SUBQ SCH (21:10)
[2020-06-24] MEDS: *HR* OxyCODONE Immed Rel 5 MG TABLET PO SCH ×4 (00:52→20:48)
[2020-06-24] MEDS: *HR* Enoxaparin 40 MG/0.4 ML SYRINGE SQ SCH (05:33)
[2020-06-24 06:43] LABS: BUN/Creatinine Ratio 13 (6-26); Blood Urea Nitrogen 13 mg/dL (6-20); Calcium 8.8 mg/dL (8.6-10.3); Carbon Dioxide 26 mEq/L (23-29); Chloride 106 mEq/L (98-107); Glucose 159 mg/dL (70-105); Magnesium 1.9 mg/dL (1.6-2.6); Osmolality,Calculated 289 (280-300); Phosphorous 3.1 mg/dL (2.7-4.5); Sodium 138 mEq/L (136-145); eGFR For African Americans > 60 (> 60); eGFR For Non-African Americans 56 (> 60)
[2020-06-24] MEDS: Insulin DETEMIR 100 UNIT/ML X5UNITS SUBQ SCH ×2 (08:26→20:48)
[2020-06-24] MEDS: Aspirin Enteric Coated 81 MG Tablet PO SCH (08:26)
[2020-06-24] MEDS: Insulin LISPRO 300 UNITS/3 ML VIAL SUBQ SCH ×3 (08:26→17:50)
[2020-06-24] MEDS ORDERED: Acetaminophen 325 MG TABLET PO ONE (14:02)
[2020-06-25] MEDS: *HR* Enoxaparin 40 MG/0.4 ML SYRINGE SQ SCH (05:59)
[2020-06-25 07:32] LABS: Chol/HDL Ratio 1.8 (0-4.9)
[2020-06-25] MEDS: Insulin LISPRO 300 UNITS/3 ML VIAL SUBQ SCH ×2 (07:51→11:55)
[2020-06-25] MEDS: *HR* OxyCODONE Immed Rel 5 MG TABLET PO SCH (07:52)
[2020-06-25] MEDS: Aspirin Enteric Coated 81 MG Tablet PO SCH (07:52)
[2020-06-25] MEDS: Insulin DETEMIR 100 UNIT/ML X5UNITS SUBQ SCH (07:54)
[2020-06-25 09:21] LABS: Estimated Average Glucose 166 mg/dl; Hemoglobin A1C 7.4 %
[2020-06-25] MEDS ORDERED: *HR* Midazolam HCl 2 MG/2 ML VIAL IVP PRN (10:32)
[2020-06-25] MEDS ORDERED: Lidocaine Viscous Oral Soln 15 ML SOLUTION MM PRN (10:32)
[2020-06-25] MEDS ORDERED: 0.9 % Sodium Chloride 500 ML IVC ONE (10:32)
[2020-06-25] MEDS: *HR* FentaNYL (PF) 100 MCG/2 ML VIAL IVP PRN ×4 (11:00→11:08)
[2020-06-25] MEDS: *HR* Midazolam HCl 5 MG/5 ML VIAL IVP ONE ×4 (11:00→11:08)
[2020-06-25 13:29] VITALS: BP 144/75
== END 2020-06-25 15:35 | disposition home or self-care (01) | DRG 45 ==
LOC: EMEROOARM 10:07 → 3BNU 10:07 → SUATTDRO 11:27 → 3BNU 13:27
PROVIDERS: ADMIT Internal Medicine; ATTEND Internal Medicine